=== PATIENT | female | born 1935 | race African-American/Black ===

== ENCOUNTER 2017-02-06 12:10 | Inpatient (IN) | payer MEDICARE, OTHER ==
[~2017-02-06] VITALS: Ht 162.6 cm; Wt 117.5 kg
[2017-02-06] VITALS (9 sets, daily range): BP systolic 123–156; BP diastolic 63–84; PULSE 68–82; RESP 18–20; TEMP 98.5–98.6; O2SAT 96–99
[2017-02-06] MEDS ORDERED: SODIUM CHLOR 0.9% 1000 ML INJ 1,000 ML IV SCH (12:49)
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
[2017-02-06] MEDS ORDERED: PIPERACIL-TAZO 3.375 GM PREMIX 50 ML IV ONE (13:30)
[2017-02-06 13:40] LABS: AUTOMATED NEUTROPHIL # 13.9 TH/MM3 (1.8-7.7); BASOPHIL # 0.1 TH/MM3 (0-0.2); BASOPHIL % 0.4 % (0.0-2.0); EOSINOPHIL % 0.1 % (0.0-4.0); HEMATOCRIT 26.4 % (35.0-46.0); LYMPH % 7.9 % (9.0-44.0); LYMPHOCYTE # 1.3 TH/MM3 (1.0-4.8); MEAN CELL VOLUME 97.1 FL (80.0-100.0); MEAN CORPUSCULAR HEMOGLOBIN 30.9 PG (27.0-34.0); MEAN CORPUSCULAR HGB CONC 31.8 % (32.0-36.0); MONO % 5.1 % (0.0-8.0); NEUT % 86.5 % (16.0-70.0); PLATELET COUNT 313 TH/MM3 (150-450); RED BLOOD COUNT 2.71 MIL/MM3 (4.00-5.30); RED CELL DISTRIBUTION WIDTH 15.2 % (11.6-17.2); WHITE BLOOD COUNT 16.1 TH/MM3 (4.0-11.0)
[2017-02-06 13:41] LABS: HEMO FLAGS AUTO DIFF
[2017-02-06 13:57] LABS: APTT (PATIENT) 35.9 SEC (24.3-30.1); INTERNATIONAL NORMALIZED RATIO 1.2 RATIO; PROTHROMBIN TIME - PATIENT 13.4 SEC (9.8-11.6)
[2017-02-06] MEDS ORDERED: POTA10TA2 PO (14:04)
[2017-02-06] MEDS ORDERED: SIMV20TA PO (14:04)
[2017-02-06] MEDS ORDERED: ENAL20TA PO (14:04)
[2017-02-06] MEDS ORDERED: FURO20TA PO (14:04)
[2017-02-06 14:09] LABS: BANDS 13 % (0-6); MYELOCYTES 1 % (0-0); NEUTROPHIL # MANUAL DIFF 14.7 TH/MM3 (1.8-7.7); PLATELET ESTIMATE SMEAR NORMAL (NORMAL); PLATELET MORPHOLOGY NORMAL (NORMAL); POLYS (SEG NEUTROPHILS) 77 % (16-70); SCAN/DIFF FINAL DIFF MANUAL; WBC DIFF SAMPLE 100
[2017-02-06 14:19] LABS: BICARBONATE 19.3 MEQ/L (21.0-32.0); MAGNESIUM 1.7 MG/DL (1.5-2.5); TOTAL BILIRUBIN ADULT 0.6 MG/DL (0.2-1.0)
[2017-02-06 14:23] LABS: POTASSIUM 2.8 MEQ/L (3.5-5.1)
[2017-02-06] MEDS ORDERED: ASPIRIN 325 MG TAB PO ONE (14:30)
[2017-02-06] MEDS ORDERED: VANCOMYCIN INJ 1,000 MG in SODIUM CHLOR 0.9% 250 ML INJ 250 ML IV ONE (14:30)
[2017-02-06] MEDS ORDERED: POTASSIUM CHLORIDE 20 MEQ CONTROLLED RELEASE TAB PO ONE (14:30)
--- NOTE | 2017-02-06 14:41 | RADRPT ---
EXAM DATE/TIME: 02/06/2017 14:17 [facility] COMPARISON: No previous studies available for comparison. INDICATIONS : Fever. MEDICAL HISTORY : None. SURGICAL HISTORY : None. ENCOUNTER: Initial ACUITY: 1 day PAIN SCORE: 0/10 LOCATION: Bilateral chest FINDINGS: The heart is at the upper limits of normal in size. The mediastinal contours are within normal limits . The lungs are clear. The bony structures demonstrate advanced degenerative changes in the shoulders bilaterally. CONCLUSION: 1. Degenerative changes in the shoulders bilaterally. 2. No acute cardiopulmonary findings. Narciso Claros MD on February 06, 2017 at 14:39 Board Certified Radiologist. This report was verified electronically.
[2017-02-06] MEDS ORDERED: CALCIUM GLUCONATE INJ 1 GM in DEXTROSE 5% IN WATER 100ML INJ 100 ML IV ONE ×2 (14:45)
--- NOTE | 2017-02-06 14:49 | RADRPT ---
EXAM DATE/TIME: 02/06/2017 14:19 [facility] COMPARISON: No previous studies available for comparison. INDICATIONS : Left foot pain and open sore. MEDICAL HISTORY : Unobatianable. SURGICAL HISTORY : Unobtainable. ENCOUNTER: Initial ACUITY: 1 day PAIN SCORE: Non-responsive. LOCATION: Left foot. FINDINGS: No significant osteoporosis. Likely previous calcaneal fracture with flattening of Boehler's angle. N o definite acute fracture, dislocation or bony destructive change. There is diffuse soft tissue swell ing and soft tissue air present adjacent to the heel and in the lateral hindfoot. Arthritic changes a re present the ankle and hindfoot. Vascular calcifications noted. CONCLUSION: Soft tissue swelling and soft tissue air most notably in the hindfoot adjacent to the heel. no defini te acute bony findings Jeramie Neely MD on February 06, 2017 at 14:45 Board Certified Radiologist. This report was verified electronically.
--- NOTE | 2017-02-06 14:54 | RADRPT ---
EXAM DATE/TIME: 02/06/2017 14:19 [facility] COMPARISON: CHEST SINGLE AP, February 06, 2017, 14:17. INDICATIONS : Left ankle pain and open sore. MEDICAL HISTORY : Unobtainable. SURGICAL HISTORY : Unobtainable. ENCOUNTER: Initial ACUITY: 1 day PAIN SCORE: Non-responsive. LOCATION: Left ankle. FINDINGS: The examination demonstrates advanced degenerative changes within the ankle mortise. There is severe osteopenia. There is depression of the talar dome suggesting an old talar dome fracture. The examination also demonstrates gas within the subcutaneous soft tissues of the heel and cortical i rregularity of the calcaneus. This study would be concerning for osteomyelitis and possible gas formi ng organism. There is advanced atherosclerotic calcification of the posterior tibial artery. CONCLUSION: 1. Soft tissue defect with gas diffusely throughout the subcutaneous soft tissues of the heel and issac ntar surface of the foot. This is concerning for gangrenous changes with a gas-forming organism. Ther e is cortical irregularity of the calcaneus suggesting osteomyelitis. 2. Severe degenerative changes within the ankle. 3. Diffuse soft tissue swelling. Narciso Claros MD on February 06, 2017 at 14:51 Board Certified Radiologist. This report was verified electronically.
--- NOTE | 2017-02-06 15:15 | RADRPT ---
EXAM DATE/TIME: 02/06/2017 14:45 [facility] COMPARISON: No previous studies available for comparison. INDICATIONS : Altered mental status. RADIATION DOSE: 47.92 CTDIvol (mGy) MEDICAL HISTORY : Cardiovascular disease. SURGICAL HISTORY : None. ENCOUNTER: Initial ACUITY: 1 day PAIN SCALE: Non-responsive LOCATION: Bilateral head TECHNIQUE: Multiple contiguous axial images were obtained of the head. Using automated exposure control and adj ustment of the mA and/or kV according to patient size, radiation dose was kept as low as reasonably a chievable to obtain optimal diagnostic quality images. DICOM format image data is available electro nically for review and comparison. FINDINGS: CEREBRUM: The ventricles are normal in size and configuration. There is decreased attenuation in the periventri cular white matter most consistent with microvascular ischemic demyelinative change. There is mild di ffuse cortical atrophy. No acute intracranial hemorrhage or mass lesion is identified. No abnormal ex tra-axial fluid collections are seen. POSTERIOR FOSSA: The cerebellum and brainstem are intact. The 4th ventricle is midline. The cerebellopontine angle i s unremarkable. EXTRACRANIAL: The visualized portion of the orbits is intact. SKULL: The calvaria is intact. No evidence of skull fracture. CONCLUSION: 1. Mild cortical atrophy and microvascular ischemic demyelinative change. 2. No acute intracranial abnormality is identified. Narciso Claros MD on February 06, 2017 at 15:11 Board Certified Radiologist. This report was verified electronically.
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
[2017-02-06 15:47] LABS: BACTERIA, URINE RARE /hpf; BLOOD, URINE SMALL (NEG); COMMENT (UR) CATH-CULTURE IND; CULTURE IF INDICATED CATH CULTURE IND; GLUCOSE,URINE NEG (NEG); GRANULAR CAST, URINE 2 /lpf; HYALINE CAST, URINE 7 /lpf (RARE); KETONE, URINE TRACE mg/dL (NEG); MUCUS URINE MANY /lpf (OCC); NITRITE,URINE NEG (NEG); PH, URINE 5.5 (5.0-8.5); SQUAMOUS EPITHELIAL CELL URINE 4 /hpf (0-5); WHITE BLOOD CELL CAST, URINE 2 /lpf
[2017-02-06 15:51] LABS: URINE COLOR ORANGE (YELLW/STRAW)
[2017-02-06] MEDS ORDERED: MORPHINE SULFATE 4 MG/ML INJ IV PUSH PRN ×2 (16:00)
[2017-02-06] MEDS ORDERED: GLUCAGON 1 MG/ML VIAL OTHER PRN (16:00)
[2017-02-06] MEDS ORDERED: MAGNESIUM HYDROXIDE SUSP 30 ML CUP PO PRN (16:00)
[2017-02-06] MEDS ORDERED: ONDANSETRON HCL 4 MG/2 ML VIAL IVP PRN (16:00)
[2017-02-06] MEDS ORDERED: DEXTROSE 50% IN WATER 50 ML VIAL(D50) IV PUSH PRN (16:00)
[2017-02-06] MEDS ORDERED: PROCHLORPERAZINE 25 MG SUPP RECTAL PRN (16:00)
[2017-02-06] MEDS ORDERED: NALOXONE HCL 0.4 MG/ML AMP IV PUSH PRN (16:00)
[2017-02-06] MEDS ORDERED: BISACODYL 10 MG SUPP RECTAL PRN (16:00)
[2017-02-06] MEDS ORDERED: ACETAMINOPHEN 325 MG TAB PO PRN ×2 (16:00)
[2017-02-06] MEDS ORDERED: oxyCODONE/ACETAMINOPHEN 10 MG/325 MG TAB PO PRN (16:00)
[2017-02-06] MEDS ORDERED: LACTULOSE SYRUP 20 GM/30 ML CUP PO PRN (16:00)
[2017-02-06] MEDS ORDERED: SENNOSIDES 8.6 MG TAB PO PRN (16:00)
[2017-02-06] MEDS ORDERED: Vancomycin Consult Pharmacy 1 EA OTHER SCH (16:00)
[2017-02-06] MEDS ORDERED: SODIUM CHLORIDE 0.9% FLUSH 10 ML FLUSH IV FLUSH PRN (16:00)
[2017-02-06] MEDS: POTASSIUM CHLORIDE INJ 10 MEQ in SODIUM CHLOR 0.9% 1000 ML INJ 1,000 ML IV SCH (16:55)
[2017-02-06] MEDS: SODIUM CHLOR 0.9% 1000 ML INJ 1,000 ML IV SCH (16:56)
[2017-02-06] MEDS: MAGNESIUM SULFATE 1 GM PREMIX 100 ML IV SCH ×3 (17:00→23:24)
[2017-02-06] MEDS ORDERED: VANCOMYCIN 500 MG/NS 100 ML IV ONE ×2 (17:30)
--- NOTE | 2017-02-06 17:47 | PD.CONS ---
History of Present Illness Service Podiatry Consult Requested By ED Reason for Consult L heel ulcer, L foot gangrene Primary Care Physician Unknown Diagnoses: History of Present Illness 81 y/o female with a history of Dementia, CHF, DM, and Hyperlipidemia was brought into the ED by family with complaints of a open left heel wound. Patient was brought in by her daughter for a left heel wound that is not healing and is smelling bad. Patient is only oriented to self and the granddaughter at the bedside is not her health care social worker. History and ROS is limited. Patient denies any pain. Past Family Social History Allergies: Coded Allergies: No Known Allergies (Unverified , 02/06/17) Past Medical History HTN Dementia CHF Past Surgical History No surgical history noted Active Ordered Medications Current Medications Medications (Trade) Dose Ordered Sig/Sean Route Start Time Stop Time Status Last Admin Potassium Chloride 10 meq/ Sodium Chloride 1,005 ml @ 42 mls/hr [id number] IV 02/06/17 14:30 02/06/17 16:55 (D50w (Vial) Inj) 50 ml UNSCH PRN IV PUSH 02/06/17 16:00 (Glucagon Inj) 1 mg UNSCH PRN OTHER 02/06/17 16:00 (NovoLOG SUPPLEMENTAL SCALE) 1 ACHS SLIDING SCALE SQ 02/06/17 17:00 Pharmacy Profile Note 0 ml @ 0 mls/hr UNSCH OTHER 02/06/17 16:00 Piperacillin Sod/ Tazobactam Sod 100 ml @ 200 mls/hr Q6H IV 02/06/17 21:00 Sodium Chloride 1,000 ml @ 100 mls/hr Q10H IV 02/06/17 16:30 02/06/17 16:56 (NS Flush) 2 ml UNSCH PRN IV FLUSH 02/06/17 16:00 (NS Flush) 2 ml BID IV FLUSH 02/06/17 21:00 (Tylenol) 650 mg Q4H PRN PO 02/06/17 16:00 (Zofran Inj) 4 mg Q6H PRN IVP 02/06/17 16:00 (Compazine Supp) 25 mg Q12H PRN RECTAL 02/06/17 16:00 (Heparin Inj) 5,000 units Q12H SQ 02/06/17 17:00 (Tylenol) 650 mg Q6H PRN PO 02/06/17 16:00 (Percocet 5-325 Mg) 1 tab Q6H PRN PO 02/06/17 16:00 (Percocet 10-325 Mg) 1 tab Q6H PRN PO 02/06/17 16:00 (Morphine Inj) 2 mg Q3H PRN IV PUSH 02/06/17 16:00 (Morphine Inj) 4 mg Q3H PRN IV PUSH 02/06/17 16:00 (Narcan Inj) 0.4 mg UNSCH PRN IV PUSH 02/06/17 16:00 (Capri-Colace) 1 tab BID PO 02/06/17 21:00 (Milk Of Magnesia Liq) 30 ml Q12H PRN PO 02/06/17 16:00 (Senokot) 17.2 mg Q12H PRN PO 02/06/17 16:00 (Dulcolax Supp) 10 mg DAILY PRN RECTAL 02/06/17 16:00 (Lactulose Liq) 30 ml DAILY PRN PO 02/06/17 16:00 (K-Lyte Cl Eff) 25 meq Q12HR PO 02/06/17 21:00 Magnesium Sulfate/ Dextrose 100 ml @ 100 mls/hr Q1H IV 02/06/17 17:00 02/06/17 18:59 (Vasotec) 20 mg DAILY PO 02/07/17 09:00 (Lasix) 20 mg DAILY PO 02/07/17 09:00 (KCl) 10 meq DAILY PO 02/07/17 09:00 (Pravachol) 40 mg DAILY PO 02/07/17 09:00 Vancomycin HCl 500 mg/Sodium Chloride 100 ml @ 200 mls/hr ONCE ONCE IV 02/06/17 17:30 02/06/17 17:59 Vancomycin HCl 1500 mg/Sodium Chloride 515 ml @ 257.5 mls/ hr Q24H IV 02/07/17 16:00 Miscellaneous Information SPECIFIC LAB TO BE DELROY... ONCE ONCE .XX 02/09/17 15:45 02/09/17 15:46 Family History Patient does not know family history Social History Patient does not use tobacco, alcohol, or illicit drugs. Physical Exam Vital Signs Vital Signs Date Time Temp Pulse Resp B/P (MAP) Pulse Ox O2 Delivery O2 Flow Rate FiO2 02/06/17 16:54 71 18 156/63 (94) 99 Room Air 02/06/17 13:16 (97) 97 Room Air 02/06/17 12:29 98.5 82 20 123/84 (97) 96 Room Air 02/06/17 12:29 82 20 02/06/17 12:24 98.5 82 20 123/84 (97) Physical Exam L heel with necrotic ulcer and foul odor with serous drainage laterally. L plantar ball of foot hard and dark, dry gangrenous changes. L 2nd toe becoming hard and cold with coolness to digits 1,3,4,5 L foot. Nonpalpable pulses. Thin atrophic skin LLE. Laboratory Laboratory Tests Test 02/06/17 13:25 02/06/17 13:30 02/06/17 15:15 White Blood Count 16.1 Red Blood Count 2.71 Hemoglobin 8.4 Hematocrit 26.4 Mean Corpuscular Volume 97.1 Mean Corpuscular Hemoglobin 30.9 Mean Corpuscular Hemoglobin Concent 31.8 Red Cell Distribution Width 15.2 Platelet Count 313 Mean Platelet Volume 8.9 Neutrophils (%) (Auto) 86.5 Lymphocytes (%) (Auto) 7.9 Monocytes (%) (Auto) 5.1 Eosinophils (%) (Auto) 0.1 Basophils (%) (Auto) 0.4 Neutrophils # (Auto) 13.9 Lymphocytes # (Auto) 1.3 Monocytes # (Auto) 0.8 Eosinophils # (Auto) 0.0 Basophils # (Auto) 0.1 CBC Comment AUTO DIFF Differential Total Cells Counted 100 Neutrophils % (Manual) 77 Band Neutrophils % 13 Lymphocytes % 4 Monocytes % 5 Neutrophils # (Manual) 14.7 Myelocytes 1 Differential Comment FINAL DIFF MANUAL Platelet Estimate NORMAL Platelet Morphology Comment NORMAL Prothrombin Time 13.4 Prothromb Time International Ratio 1.2 Activated Partial Thromboplast Time 35.9 Blood Urea Nitrogen 17 Creatinine 0.74 Random Glucose 145 Total Protein 5.0 Albumin 1.3 Calcium Level 6.0 Magnesium Level 1.7 Alkaline Phosphatase 60 Aspartate Amino Transf (AST/SGOT) 22 Alanine Aminotransferase (ALT/SGPT) 9 Total Bilirubin 0.6 Sodium Level 148 Potassium Level 2.8 Chloride Level 120 Carbon Dioxide Level 19.3 Anion Gap 9 Estimat Glomerular Filtration Rate 92 Protein Corrected Calcium 7.0 Total Creatine Kinase 87 Troponin I 4.87 C-Reactive Protein 18.40 B-Type Natriuretic Peptide 603 Thyroid Stimulating Hormone 3rd Gen 0.889 Lactic Acid Level 1.7 Urine Color ORANGE Urine Turbidity CLOUDY Urine pH 5.5 Urine Specific [place] 1.029 Urine Protein 30 Urine Glucose (UA) NEG Urine Ketones TRACE Urine Occult Blood SMALL Urine Nitrite NEG Urine Bilirubin NEG Urine Urobilinogen 8.0 Urine Leukocyte Esterase NEG Urine RBC 25 Urine WBC 28 Urine WBC Clumps FEW Urine Squamous Epithelial Cells 4 Urine Bacteria RARE Urine Hyaline Casts 7 Urine Granular Casts 2 Urine White Blood Cell Casts 2 Urine Mucus MANY Microscopic Urinalysis Comment CATH-CULTURE IND Date/Time Source Procedure Growth Status 02/06/17 13:25 Blood Peripheral Aerobic Blood Culture Pending Received 02/06/17 13:25 Blood Peripheral Anaerobic Blood Culture Pending Received 02/06/17 15:15 Urine Catheterized Urine Urine Culture Pending Received 02/06/17 13:15 Wound Foot Gram Stain - Final Resulted 02/06/17 13:15 Wound Foot Wound Culture Pending Resulted Result Diagram: 02/06/17 1325 02/06/17 1325 Imaging Last [address] 02/06/17 1249 Signed Impressions: Service Date/Time: Monday, February 06, 2017 14:45 - CONCLUSION: 1. Mild cortical atrophy and microvascular ischemic demyelinative change. 2. No acute intracranial abnormality is identified. Narciso Claros MD Chest X-Ray 02/06/17 1249 Signed Impressions: Service Date/Time: Monday, February 06, 2017 14:17 - CONCLUSION: 1. Degenerative changes in the shoulders bilaterally. 2. No acute cardiopulmonary findings. Narciso Claros MD Foot X-Ray 02/06/17 0000 Signed Impressions: Service Date/Time: Monday, February 06, 2017 14:19 - CONCLUSION: Soft tissue swelling and soft tissue air most notably in the hindfoot adjacent to the heel. no definite acute bony findings Jeramie Neely MD Ankle X-Ray 02/06/17 0000 Signed Impressions: Service Date/Time: Monday, February 06, 2017 14:19 - CONCLUSION: 1. Soft tissue defect with gas diffusely throughout the subcutaneous soft tissues of the heel and plantar surface of the foot. This is concerning for gangrenous changes with a gas-forming organism. There is cortical irregularity of the calcaneus suggesting osteomyelitis. 2. Severe degenerative changes within the ankle. 3. Diffuse soft tissue swelling. Narciso Claros MD MRI L foot pending Assessment and Plan Assessment and Plan L heel ulcer, gangrene Continue with MRI L foot Ordered betadine wet to dry dressing daily Vascular consultation put in to Dr Sargent. Discussed patient with him via telephone. Continue offloading L heel. Bernardo Julian DPM Feb 06, 2017 17:47
[2017-02-06] MEDS ORDERED: GADODIAMIDE PF 287 MG/ML 20 ML VIAL (for RAD MRI) IVCONTRAST ONE (18:42)
--- NOTE | 2017-02-06 18:57 | RADRPT ---
EXAM DATE/TIME: 02/06/2017 18:02 [facility] COMPARISON: FOOT LEFT COMPLETE ([id number]), February 06, 2017, 14:19. INDICATIONS : Osteomyelitis. CONTRAST: 20 cc Omniscan (gadodiamide) IV MEDICAL HISTORY : Diabetes mellitus type 2. Hypertension. Dementia. SURGICAL HISTORY : None. ENCOUNTER: Initial ACUITY: 1 day PAIN SCORE: 0/10 LOCATION: Left Foot TECHNIQUE: Multiplanar, multisequence MRI examination was performed without contrast and after the intravenous a dministration of gadolinium. FINDINGS: Diffuse soft tissue cellulitic changes. Air in the soft tissues of the heel region. Significant abnor mal bony signal and morphologic disruption of the posterior calcaneus consistent with osteomyelitis. Bony elements appear otherwise grossly intact. No evidence of drainable soft tissue abscess. CONCLUSION: Osteomyelitis involving the posterior calcaneus Jeramie Neely MD on February 06, 2017 at 18:50 Board Certified Radiologist. This report was verified electronically.
--- NOTE | 2017-02-06 19:05 | RADRPT ---
EXAM DATE/TIME: 02/06/2017 18:02 [facility] COMPARISON: No previous studies available for comparison. INDICATIONS : Osteomyelitis. CONTRAST: 20 cc Omniscan (gadodiamide) IV MEDICAL HISTORY : Hypertension. Diabetes mellitus type 2. Dementia. SURGICAL HISTORY : None. ENCOUNTER: Initial ACUITY: 1 day PAIN SCORE: 0/10 LOCATION: Left foot TECHNIQUE: Multiplanar, multisequence MRI examination was performed without contrast and after the intravenous a dministration of gadolinium. FINDINGS: Diffuse subcutaneous edema and imaging features consistent with cellulitis. There is a large ulcer at the posterior calcaneal region with air in the subcutaneous tissues at this level and abnormal bone marrow signal intensity and irregularity of the posterior calcaneus with high T2 signal, and this is characteristic of osteomyelitis. There are no drainable fluid collections identified. Ulceration of t he lower leg is seen with exposure of the Achilles tendon. CONCLUSION: Significant soft tissue deformity with cellulitis and osteomyelitis of the posterior calcaneus. No dr alexander fluid collections are seen to suggest abscess at this time. Yoan Subramanian MD on February 06, 2017 at 19:02 Board Certified Radiologist. This report was verified electronically.
[2017-02-06] MEDS: INSULIN ASPART SUPPLEMENTAL SCALE SQ SCH ×2 (21:00→21:57)
[2017-02-06] MEDS: POTASSIUM CHLORIDE 25 MEQ EFFERVESCENT TAB PO SCH (21:56)
[2017-02-06] MEDS: SODIUM CHLORIDE 0.9% FLUSH 10 ML FLUSH IV FLUSH SCH (21:57)
[2017-02-06] MEDS: HEPARIN SODIUM - SQ 10,000 UNITS/ML VIAL SQ SCH (21:57)
[2017-02-06] MEDS: PIPERACIL-TAZO 4.5 GM PREMIX 100 ML IV SCH (21:57)
[2017-02-06] MEDS: DOCUSATE SODIUM 50 MG/SENNA 8.6 MG TAB PO SCH (21:58)
[2017-02-06] MEDS ORDERED: VANCOMYCIN INJ 500 MG in SODIUM CHLOR 0.9% 250 ML INJ 250 ML IV ONE (23:00)
[2017-02-07] VITALS (16 sets, daily range): BP systolic 107–149; BP diastolic 50–75; PULSE 64–94; RESP 14–18; TEMP 98.4–99.2; O2SAT 94–99
[2017-02-07] MEDS: MAGNESIUM SULFATE 1 GM PREMIX 100 ML IV SCH (00:39)
[2017-02-07] MEDS: PIPERACIL-TAZO 4.5 GM PREMIX 100 ML IV SCH ×4 (03:38→20:42)
[2017-02-07] MEDS: HEPARIN SODIUM - SQ 10,000 UNITS/ML VIAL SQ SCH ×2 (05:06→17:24)
[2017-02-07 05:38] LABS: AUTOMATED NEUTROPHIL # 18.7 TH/MM3 (1.8-7.7); BASOPHIL # 0.3 TH/MM3 (0-0.2); BASOPHIL % 1.5 % (0.0-2.0); EOSINOPHIL # 0.1 TH/MM3 (0-0.4); EOSINOPHIL % 0.4 % (0.0-4.0); HEMATOCRIT 30.1 % (35.0-46.0); LYMPH % 7.6 % (9.0-44.0); LYMPHOCYTE # 1.7 TH/MM3 (1.0-4.8); MEAN CELL VOLUME 95.4 FL (80.0-100.0); MEAN CORPUSCULAR HEMOGLOBIN 30.2 PG (27.0-34.0); MEAN CORPUSCULAR HGB CONC 31.6 % (32.0-36.0); MONO % 5.2 % (0.0-8.0); NEUT % 85.3 % (16.0-70.0); PLATELET COUNT 378 TH/MM3 (150-450); RED BLOOD COUNT 3.15 MIL/MM3 (4.00-5.30); RED CELL DISTRIBUTION WIDTH 14.7 % (11.6-17.2); WHITE BLOOD COUNT 21.9 TH/MM3 (4.0-11.0)
[2017-02-07 05:40] LABS: HEMO FLAGS AUTO DIFF
[2017-02-07 06:03] LABS: ALT (GPT) 12 U/L (10-53); ANION GAP 10 MEQ/L (5-15); AST (GOT) 27 U/L (15-37); BICARBONATE 23.3 MEQ/L (21.0-32.0); BLOOD UREA NITROGEN 22 MG/DL (7-18); CHLORIDE 111 MEQ/L (98-107); GLOMERULAR FILTRATION RATE 66 ML/MIN (>89); MAGNESIUM 2.9 MG/DL (1.5-2.5); POTASSIUM 3.9 MEQ/L (3.5-5.1); SODIUM (NA) 144 MEQ/L (136-145)
[2017-02-07 06:18] LABS: ALKALINE PHOSPHATASE 77 U/L (45-117); CREATINE KINASE 135 U/L (26-192); FREE T4 1.63 NG/DL (0.76-1.46); HDL CHOLESTEROL 13.1 MG/DL (40.0-60.0); LDL CHOLESTEROL 42 MG/DL (0-99); TOTAL BILIRUBIN ADULT 0.7 MG/DL (0.2-1.0)
[2017-02-07 06:47] LABS: PLATELET ESTIMATE SMEAR NORMAL (NORMAL); PLATELET MORPHOLOGY NORMAL (NORMAL); SCAN/DIFF AUTO DIFF CONFIRMED
[2017-02-07] MEDS: INSULIN ASPART SUPPLEMENTAL SCALE SQ SCH ×4 (08:00→20:43)
--- NOTE | 2017-02-07 08:37 | PD.VS.CON ---
History of Present Illness Chief Complaint: L heel wound Consult Requested by: Dr. Julian History of Present Illness 81 yo female, demented, with a history of at least 4 weeks of L heel wound. Brought to ED for concerns of drainage and odor. Pt lives with daughter and according to daughter has been nonambulatory x 5 months. Past/Family/Social History Past Medical History DM HTN CHF CAD PAD arthritis Past Surgical History unsure Social History lives with daughter DCF involved apparently Family History NC Home Medications Reported Medications Simvastatin (Simvastatin) 20 Mg Tab, 20 MG PO DAILY for Cholesterol Management, #30 TAB 0 Refills 02/06/17 Enalapril (Enalapril) 20 Mg Tab, 20 MG PO DAILY, #30 TAB 0 Refills 02/06/17 Furosemide (Furosemide) 20 Mg Tab, 20 MG PO DAILY, #30 TAB 0 Refills 02/06/17 Potassium Chloride ER (Potassium Chloride ER) 10 Meq Tab, 10 MEQ PO DAILY for Electrolyte Replacement, #30 TAB 0 Refills 02/06/17 Coded Allergies: No Known Allergies (Unverified , 02/06/17) Review of Systems ROS Limitations: Altered Mental Status Physical Exam Vitals/I&O Date Time Temp Pulse Resp B/P (MAP) Pulse Ox O2 Delivery O2 Flow Rate FiO2 02/07/17 06:00 64 02/07/17 05:00 74 02/07/17 04:00 Room Air 02/07/17 04:00 72 02/07/17 04:00 98.7 68 18 133/69 (90) 95 02/07/17 03:00 68 02/07/17 02:00 80 02/07/17 01:00 78 02/07/17 00:00 99.2 94 18 130/70 (90) 94 02/07/17 00:00 Room Air 02/07/17 00:00 83 02/06/17 23:00 82 02/06/17 22:00 68 02/06/17 21:00 68 02/06/17 20:00 68 02/06/17 19:20 98.6 78 18 124/74 (91) 99 02/06/17 19:20 Room Air 02/06/17 18:16 02/06/17 16:54 71 18 156/63 (94) 99 Room Air 02/06/17 13:16 (97) 97 Room Air 02/06/17 12:29 98.5 82 20 123/84 (97) 96 Room Air 02/06/17 12:29 82 20 02/06/17 12:24 98.5 82 20 123/84 (97) 02/07/17 02/07/17 02/07/17 06:59 14:59 22:59 Intake Total 2138 ml Output Total 2 ml Balance 2136 ml Neuro: debilitated women, no distress, talks but not oriented HEENT: anicteric sclera Neck: no JVD Lungs: clear Abdomen: NT Vascular: no palpable pulses Extremities: L heel eschar and Achilles breakdown Plantar ulcer Laboratory Tests Test 02/06/17 13:25 02/06/17 13:30 02/06/17 15:15 02/07/17 05:21 White Blood Count 16.1 21.9 Red Blood Count 2.71 3.15 Hemoglobin 8.4 9.5 Hematocrit 26.4 30.1 Mean Corpuscular Volume 97.1 95.4 Mean Corpuscular Hemoglobin 30.9 30.2 Mean Corpuscular Hemoglobin Concent 31.8 31.6 Red Cell Distribution Width 15.2 14.7 Platelet Count 313 378 Mean Platelet Volume 8.9 9.3 Neutrophils (%) (Auto) 86.5 85.3 Lymphocytes (%) (Auto) 7.9 7.6 Monocytes (%) (Auto) 5.1 5.2 Eosinophils (%) (Auto) 0.1 0.4 Basophils (%) (Auto) 0.4 1.5 Neutrophils # (Auto) 13.9 18.7 Lymphocytes # (Auto) 1.3 1.7 Monocytes # (Auto) 0.8 1.1 Eosinophils # (Auto) 0.0 0.1 Basophils # (Auto) 0.1 0.3 CBC Comment AUTO DIFF AUTO DIFF Differential Total Cells Counted 100 Neutrophils % (Manual) 77 Band Neutrophils % 13 Lymphocytes % 4 Monocytes % 5 Neutrophils # (Manual) 14.7 Myelocytes 1 Differential Comment FINAL DIFF MANUAL AUTO DIFF CONFIRMED Platelet Estimate NORMAL NORMAL Platelet Morphology Comment NORMAL NORMAL Prothrombin Time 13.4 Prothromb Time International Ratio 1.2 Activated Partial Thromboplast Time 35.9 Blood Urea Nitrogen 17 22 Creatinine 0.74 0.98 Random Glucose 145 174 Total Protein 5.0 6.6 Albumin 1.3 1.8 Calcium Level 6.0 8.0 Magnesium Level 1.7 2.9 Alkaline Phosphatase 60 77 Aspartate Amino Transf (AST/SGOT) 22 27 Alanine Aminotransferase (ALT/SGPT) 9 12 Total Bilirubin 0.6 0.7 Sodium Level 148 144 Potassium Level 2.8 3.9 Chloride Level 120 111 Carbon Dioxide Level 19.3 23.3 Anion Gap 9 10 Estimat Glomerular Filtration Rate 92 66 Protein Corrected Calcium 7.0 Total Creatine Kinase 87 135 Troponin I 4.87 5.30 C-Reactive Protein 18.40 B-Type Natriuretic Peptide 603 Thyroid Stimulating Hormone 3rd Gen 0.889 1.940 Lactic Acid Level 1.7 Urine Color ORANGE Urine Turbidity CLOUDY Urine pH 5.5 Urine Specific [place] 1.029 Urine Protein 30 Urine Glucose (UA) NEG Urine Ketones TRACE Urine Occult Blood SMALL Urine Nitrite NEG Urine Bilirubin NEG Urine Urobilinogen 8.0 Urine Leukocyte Esterase NEG Urine RBC 25 Urine WBC 28 Urine WBC Clumps FEW Urine Squamous Epithelial Cells 4 Urine Bacteria RARE Urine Hyaline Casts 7 Urine Granular Casts 2 Urine White Blood Cell Casts 2 Urine Mucus MANY Microscopic Urinalysis Comment CATH-CULTURE IND Red Cell Morphology Comment NORMAL Phosphorus Level 2.0 Triglycerides Level 126 Cholesterol Level 80 LDL Cholesterol 42 HDL Cholesterol 13.1 Cholesterol/HDL Ratio 6.10 Free Thyroxine 1.63 Date/Time Source Procedure Growth Status 02/06/17 13:25 Blood Peripheral Aerobic Blood Culture Pending Received 02/06/17 13:25 Blood Peripheral Anaerobic Blood Culture Pending Received 02/06/17 15:15 Urine Catheterized Urine Urine Culture Pending Received 02/06/17 13:15 Wound Foot Gram Stain - Final Resulted 02/06/17 13:15 Wound Foot Wound Culture Pending Resulted Last [address] 02/06/17 1249 Signed Impressions: Service Date/Time: Monday, February 06, 2017 14:45 - CONCLUSION: 1. Mild cortical atrophy and microvascular ischemic demyelinative change. 2. No acute intracranial abnormality is identified. Narciso Claros MD Chest X-Ray 02/06/17 1249 Signed Impressions: Service Date/Time: Monday, February 06, 2017 14:17 - CONCLUSION: 1. Degenerative changes in the shoulders bilaterally. 2. No acute cardiopulmonary findings. Narciso Claros MD Foot X-Ray 02/06/17 0000 Signed Impressions: Service Date/Time: Monday, February 06, 2017 14:19 - CONCLUSION: Soft tissue swelling and soft tissue air most notably in the hindfoot adjacent to the heel. no definite acute bony findings Jeramie Neely MD Foot MRI 02/06/17 Signed Impressions: Service Date/Time: Monday, February 06, 2017 18:02 - CONCLUSION: Osteomyelitis involving the posterior calcaneus Jeramie Neely MD Ankle X-Ray 02/06/17 Signed Impressions: Service Date/Time: Monday, February 06, 2017 14:19 - CONCLUSION: 1. Soft tissue defect with gas diffusely throughout the subcutaneous soft tissues of the heel and plantar surface of the foot. This is concerning for gangrenous changes with a gas-forming organism. There is cortical irregularity of the calcaneus suggesting osteomyelitis. 2. Severe degenerative changes within the ankle. 3. Diffuse soft tissue swelling. Narciso Claros MD Ankle MRI 02/06/17 Signed Impressions: Service Date/Time: Monday, February 06, 2017 18:02 - CONCLUSION: Significant soft tissue deformity with cellulitis and osteomyelitis of the posterior calcaneus. No drainable fluid collections are seen to suggest abscess at this time. Yoan Subramanian MD Assessment and Plan Plan Heel ulcer amounts to decubitus and clear osteo but no abscess on MRI. I don't think the foot is salvageable and she needs an AKA given nonambulatory status. I talked with one of her daughters (8 children) but will ask social work to get involved as well given issues laid out in H&P re: DCF. Likely staged AKA in next day or two. Jonathan Sargent MD [facility] [employer] property specialist [facility] - Heart and Vascular Surgery at [facility] [phone] Jonathan Sargent MD Feb 07, 2017 08:37
[2017-02-07] MEDS: ENALAPRIL MALEATE 10 MG TAB PO SCH (09:00)
--- NOTE | 2017-02-07 09:04 | ECHRPT ---
Indication: htn h dis CONCLUSIONS The left ventricular systolic function is [id number] reduced with an estimated ejection fra ction in the range of 35-40%. Normal left ventricular size. Hypokinesis of anteroseptal, apical, mid anterior, and anterolateral segments. Moderate concentric left ventricular hypertrophy. Mild mitral valve regurgitation. No aortic valve stenosis. No aortic valve regurgitation. There is mild tricuspid valve regurgitation. The estimated pulmonary arterial pressure is 50.7 mmHg. BP: / HR: Rhythm: MEASUREMENTS (Male / Female) Normal Values Technical Quality:Technically difficult study 2D ECHO LV Diastolic Diameter PLAX 4.8 cm 4.2 - 5.9 / 3.9 - 5.3 cm LV Systolic Diameter PLAX 4.1 cm IVS Diastolic Thickness 1.5 cm 0.6 - 1.0 / 0.6 - 0.9 cm LVPW Diastolic Thickness 0.9 cm 0.6 - 1.0 / 0.6 - 0.9 cm LV Relative Wall Thickness 0.5 RV Internal Dim ED PLAX 2.4 cm M-MODE Aortic Root Diameter MM 2.3 cm LA Systolic Diameter MM 3.1 cm LA Ao Ratio MM 1.3 AV Cusp Separation MM 1.8 cm DOPPLER Mitral E Point Velocity 50.3 cm/s Mitral A Point Velocity 101.0 cm/s Mitral E to A Ratio 0.5 LV E' Lateral Velocity 5.4 cm/s Mitral E to LV E' Lateral Ratio 9.4 LV E' Septal Velocity 5.4 cm/s Mitral E to LV E' Septal Ratio 9.4 TR Peak Velocity 319.0 cm/s TR Peak Gradient 40.7 mmHg Right Atrial Pressure 10.0 mmHg Pulmonary Artery Systolic Pressu 50.7 mmHg Right Ventricular Systolic Press 50.7 mmHg FINDINGS LEFT VENTRICLE The left ventricular systolic function is [id number] reduced with an estimated ejection fra ction in the range of 35-40%. Normal left ventricular size. Hypokinesis of anteroseptal, apical, mid anterior, and anterolateral segments. Moderate concentric left ventricular hypertrophy. RIGHT VENTRICLE Normal right ventricular size and systolic function. LEFT ATRIUM The left atrial size is normal. RIGHT ATRIUM The right atrial size is normal. ATRIAL SEPTUM Normal atrial septal thickness without atrial level shunting by limited color doppler interrogation. AORTA The aortic root and proximal ascending aorta are normal in size on limited imaging. MITRAL VALVE Structurally normal mitral valve. Mild mitral valve regurgitation. AORTIC VALVE Trileaflet aortic valve. No aortic valve stenosis. No aortic valve regurgitation. TRICUSPID VALVE Structurally normal tricuspid valve. There is mild tricuspid valve regurgitation. The estimated pulmonary arterial pressure is 50.7 mmHg. PULMONARY VALVE No pulmonary valve regurgitation or stenosis. VESSELS The inferior vena cava is normal in size. PERICARDIUM No pericardial effusion. Jj Guillermo MD, FACC (Electronically Signed) Final Date:07 February 2017 09:03
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
[2017-02-07 10:10] LABS: HEMOGLOBIN A1a 0.8 %; HEMOGLOBIN A1b 0.8 %; HEMOGLOBIN Ao 81.6 %; HEMOGLOBIN F 1.3 %; HEMOGLOBIN LA1C 2.6 %; HEMOGLOBIN P3 6.2 %
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
[2017-02-07] MEDS: PRAVASTATIN SOD 40 MG TAB PO SCH (10:39)
[2017-02-07] MEDS: POTASSIUM CHLORIDE 10 MEQ CONTROLLED RELEASE TAB PO SCH (10:39)
[2017-02-07] MEDS: FUROSEMIDE 20 MG TAB PO SCH (10:40)
[2017-02-07] MEDS: SODIUM CHLORIDE 0.9% FLUSH 10 ML FLUSH IV FLUSH SCH ×2 (10:40→20:42)
[2017-02-07] MEDS: DOCUSATE SODIUM 50 MG/SENNA 8.6 MG TAB PO SCH ×2 (10:40→20:42)
[2017-02-07] MEDS: POTASSIUM CHLORIDE 25 MEQ EFFERVESCENT TAB PO SCH ×2 (10:40→20:42)
[2017-02-07] MEDS: SODIUM CHLOR 0.9% 1000 ML INJ 1,000 ML IV SCH ×3 (10:46→20:44)
--- NOTE | 2017-02-07 12:51 | EKG ---
Date Performed: 02/07/2017 Time Performed: 05:40:32 PTAGE: 81 years EKG: Atrial fibrillation Possible anteroseptal infarct - age undetermined Lateral ST-T changes m ay be due to myocardial ischemia Abnormal ECG Compared to prior tracing no significant change PREVIOUS TRACING : 02/06/2017 13.16 DOCTOR: Alan Treviño Interpretating Date/Time 02/07/2017 12:49:39
--- NOTE | 2017-02-07 15:20 | PD.WCN.NOT ---
Wound Consult Description: Received consult for pressure ulcer to heels, ankles and sacral area. Podiatry is following patient for heel and ankle wounds Communicated with: SANIA Mejia [facility] Recommendation: 1.Please cleanse bilateral buttock, gluteal cleft and sacral area with soap and water gently and pat dry. Apply thick layer of Calazime barrier cream to areas and leave open to air. 2.Obtain [place] airapy bed from environmental or if not available, please order K4 bed from [facility] 3.Continue to turn patient every 2 hours and PRN for comfort 4. Please defer to podiatry for wound care orders for heel and ankle wounds Additional Information: Patient seen on [facility]IC for pressure ulcer of heels, ankles and sacral area. Patient turned to R side with the maximum assistance of Jackie LUI CIC and field underwriter. Gently spread gluteal folds apart to reveal small wound to sacral area that measures 1 cm x ~0.5cm x~0.2cm wound bed is noted with ~80% pink tissue and ~20%yellow tissue.Wound presents with round shape and defined wound margins. Wound appears pressure and moisture related. Wound appears to be a full thickness stage 3. Just below sacral wound is a fissure to the medial gluteal cleft that measures ~3cm x~0.2cm x~0.1cm. Fissure presents with 100% pink tissue. Fissure wound appears to be moisture and mechanical force related. Cleansed wounds with normal saline and left open to air. SANIA Mejia to offload pressure from patient's buttock area with pillow for support and apply Calazime barrier cream when supplies obtained. Patient does need pressure relieving support surface as recommended above. Ava Boles [facility] Feb 07, 2017 15:20
[2017-02-07 15:22] LABS: CKMB 5.6 NG/ML (0.5-3.6)
--- NOTE | 2017-02-07 16:19 | EKG ---
Date Performed: 02/06/2017 Time Performed: 13:16:52 PTAGE: 81 years EKG: Sinus rhythm WITH SINUS ARRHYTHMIA Nonspecific T wave changes, consider electrolyte abnormality NO PREVIOUS TRACING DOCTOR: Alan Treviño Interpretating Date/Time 02/07/2017 16:18:32
[2017-02-07] MEDS: NYSTATIN 100,000 UNIT/GM CREAM 15 GM TOPICAL SCH ×2 (17:23→20:43)
[2017-02-07] MEDS: NYSTATIN 100,000 U/GM PWD 15 GM BTL TOPICAL SCH ×2 (17:23→20:43)
[2017-02-07] MEDS: VANCOMYCIN 1,500 MG/NS 500 ML IV SCH ×2 (17:24)
[2017-02-07] MEDS: POTASSIUM CHLORIDE INJ 10 MEQ in SODIUM CHLOR 0.9% 1000 ML INJ 1,000 ML IV SCH (17:49)
[2017-02-08] VITALS (25 sets, daily range): BP systolic 107–140; BP diastolic 32–66; PULSE 60–84; RESP 15–18; TEMP 97.3–98.8; O2SAT 97–100
[2017-02-08] MEDS: NYSTATIN 100,000 UNIT/GM CREAM 15 GM TOPICAL SCH ×3 (05:18→21:47)
[2017-02-08] MEDS: PIPERACIL-TAZO 4.5 GM PREMIX 100 ML IV SCH ×4 (05:18→21:45)
[2017-02-08] MEDS: NYSTATIN 100,000 U/GM PWD 15 GM BTL TOPICAL SCH ×3 (05:18→21:47)
[2017-02-08] MEDS: HEPARIN SODIUM - SQ 10,000 UNITS/ML VIAL SQ SCH ×2 (05:18→17:59)
--- NOTE | 2017-02-08 06:54 | PD.POD ---
Subjective Pain score: 0 Remarks relates minimal pain today, late entry- pt was also seen yesterday with daughter present. Past Med/Surg/Social History Social History Smoking Status: Never Smoker Objective Vital Signs Vital Signs Date Time Temp Pulse Resp B/P (MAP) Pulse Ox O2 Delivery O2 Flow Rate FiO2 02/08/17 06:26 69 02/08/17 05:38 76 02/08/17 04:59 98.8 79 111/56 (74) 100 02/08/17 04:00 76 02/08/17 03:00 77 02/08/17 02:00 76 02/08/17 01:00 74 02/08/17 00:00 74 02/07/17 23:28 72 02/07/17 23:00 98.8 73 107/65 (79) 95 02/07/17 22:27 98.4 73 149/50 (83) 99 02/07/17 21:00 77 02/07/17 20:00 77 02/07/17 19:00 77 02/07/17 19:00 Room Air 02/07/17 15:00 98.9 86 16 132/75 (94) 02/07/17 11:00 98.4 66 16 141/74 (96) 02/07/17 07:00 99.0 84 14 141/70 (93) Coded Allergies: No Known Allergies (Unverified , 02/06/17) Medications and IVs Administered Medications Medications (Trade) Dose Ordered Sig/Sean Route PRN Reason Start Time Stop Time Status Last Admin Dose Admin Potassium Chloride 10 meq/ Sodium Chloride 1,005 ml @ 42 mls/hr [id number] IV 02/06/17 14:30 02/07/17 17:49 Insulin Aspart (NovoLOG SUPPLEMENTAL SCALE) 1 ACHS SLIDING SCALE SQ 02/06/17 17:00 02/07/17 20:43 Piperacillin Sod/ Tazobactam Sod 100 ml @ 200 mls/hr Q6H IV 02/06/17 21:00 02/08/17 05:18 Sodium Chloride 1,000 ml @ 100 mls/hr Q10H IV 02/06/17 16:30 02/07/17 20:44 Sodium Chloride (NS Flush) 2 ml BID IV FLUSH 02/06/17 21:00 02/07/17 20:42 Acetaminophen (Tylenol) 650 mg Q4H PRN PO TEMP > 100.4 02/06/17 16:00 02/07/17 10:39 Heparin Sodium (Porcine) (Heparin Inj) 5,000 units Q12H SQ 02/06/17 17:00 02/08/17 05:18 Senna/Docusate Sodium (Capri-Colace) 1 tab BID PO 02/06/17 21:00 02/07/17 10:40 Potassium Bicarb/ Potassium Chloride (K-Lyte Cl Eff) 25 meq Q12HR PO 02/06/17 21:00 02/07/17 20:42 Enalapril Maleate (Vasotec) 20 mg DAILY PO 02/07/17 09:00 02/07/17 09:00 Furosemide (Lasix) 20 mg DAILY PO 02/07/17 09:00 02/07/17 10:40 Potassium Chloride (KCl) 10 meq DAILY PO 02/07/17 09:00 02/07/17 10:39 Pravastatin Sodium (Pravachol) 40 mg DAILY PO 02/07/17 09:00 02/07/17 10:39 Vancomycin HCl 1500 mg/Sodium Chloride 515 ml @ 257.5 mls/ hr Q24H IV 02/07/17 16:00 02/07/17 17:24 Nystatin (Mycostatin Powder) 1 applic Q8HR TOPICAL 02/07/17 14:00 02/08/17 05:18 Nystatin (Mycostatin Cream) 1 applic Q8HR TOPICAL 02/07/17 14:00 02/08/17 05:18 Other Results Microbiology Date/Time Source Procedure Growth Status 02/06/17 13:25 Blood Peripheral Aerobic Blood Culture - Preliminary NO GROWTH IN 1 DAY Resulted 02/06/17 13:25 Blood Peripheral Anaerobic Blood Culture - Preliminary NO GROWTH IN 1 DAY Resulted 02/06/17 15:15 Urine Catheterized Urine Urine Culture - Preliminary NO GROWTH IN 24 HOURS. Resulted 02/06/17 13:15 Wound Foot Gram Stain - Final Resulted 02/06/17 13:15 Wound Foot Wound Culture - Preliminary Resulted Last [address] 02/06/17 8650 Signed Impressions: Service Date/Time: Monday, February 06, 2017 14:45 - CONCLUSION: 1. Mild cortical atrophy and microvascular ischemic demyelinative change. 2. No acute intracranial abnormality is identified. Narciso Claros MD Chest X-Ray 02/06/17 1249 Signed Impressions: Service Date/Time: Monday, February 06, 2017 14:17 - CONCLUSION: 1. Degenerative changes in the shoulders bilaterally. 2. No acute cardiopulmonary findings. Narciso Claros MD Foot X-Ray 02/06/17 0000 Signed Impressions: Service Date/Time: Monday, February 06, 2017 14:19 - CONCLUSION: Soft tissue swelling and soft tissue air most notably in the hindfoot adjacent to the heel. no definite acute bony findings Jeramie Neely MD Foot MRI 02/06/17 Signed Impressions: Service Date/Time: Monday, February 06, 2017 18:02 - CONCLUSION: Osteomyelitis involving the posterior calcaneus Jeramie Neely MD Ankle X-Ray 02/06/17 Signed Impressions: Service Date/Time: Monday, February 06, 2017 14:19 - CONCLUSION: 1. Soft tissue defect with gas diffusely throughout the subcutaneous soft tissues of the heel and plantar surface of the foot. This is concerning for gangrenous changes with a gas-forming organism. There is cortical irregularity of the calcaneus suggesting osteomyelitis. 2. Severe degenerative changes within the ankle. 3. Diffuse soft tissue swelling. Narciso Claros MD Ankle MRI 02/06/17 Signed Impressions: Service Date/Time: Monday, February 06, 2017 18:02 - CONCLUSION: Significant soft tissue deformity with cellulitis and osteomyelitis of the posterior calcaneus. No drainable fluid collections are seen to suggest abscess at this time. Yoan Subramanian MD Physical Exam General appearance: comfortable Details Left foot- dark dry black area of 2nd digit, plantar forefoot and posterior, full thickness eschars noted with no odor, foot is warm. Right foot no lesions and skin appears dry scaling with no lesions, right foot is warm. Details Hard to palpate pulses BL LE Details Limited motion and muscle strength of BL foot and ankle Details Sensation below BL ankles appear to be absent. Assessment & Plan Diagnosis: (1) Decubitus ulcer of ankle, unstageable ICD Codes: L89.500 - Pressure ulcer of unspecified ankle, unstageable Status: Chronic A/P No surgical intervention planned, reviewed case with vascular agree with stage AK. Right foot needs no attention other than offloading to prevent ulcerations, pillow under calf. Please re-consult as need, Podiatry sign off. Problem Qualifiers (1) Decubitus ulcer of ankle, unstageable: Qualified Codes: L89.520 - Pressure ulcer of left ankle, unstageable Domingo Ortiz DPM Feb 08, 2017 06:54
[2017-02-08 07:02] LABS: AUTOMATED NEUTROPHIL # 15.5 TH/MM3 (1.8-7.7); BASOPHIL # 0.1 TH/MM3 (0-0.2); BASOPHIL % 0.4 % (0.0-2.0); EOSINOPHIL # 0.1 TH/MM3 (0-0.4); EOSINOPHIL % 0.7 % (0.0-4.0); HEMATOCRIT 27.4 % (35.0-46.0); HEMO FLAGS DIFF FINAL; LYMPH % 9.3 % (9.0-44.0); LYMPHOCYTE # 1.7 TH/MM3 (1.0-4.8); MEAN CELL VOLUME 96.8 FL (80.0-100.0); MEAN CORPUSCULAR HEMOGLOBIN 29.9 PG (27.0-34.0); MEAN CORPUSCULAR HGB CONC 30.9 % (32.0-36.0); MONO % 5.5 % (0.0-8.0); NEUT % 84.1 % (16.0-70.0); PLATELET COUNT 336 TH/MM3 (150-450); RED BLOOD COUNT 2.83 MIL/MM3 (4.00-5.30); RED CELL DISTRIBUTION WIDTH 15.6 % (11.6-17.2); WHITE BLOOD COUNT 18.4 TH/MM3 (4.0-11.0)
[2017-02-08 07:18] LABS: ALT (GPT) 11 U/L (10-53); ANION GAP 9 MEQ/L (5-15); AST (GOT) 37 U/L (15-37); BICARBONATE 22.2 MEQ/L (21.0-32.0); BLOOD UREA NITROGEN 20 MG/DL (7-18); CHLORIDE 117 MEQ/L (98-107); GLOMERULAR FILTRATION RATE 59 ML/MIN (>89); MAGNESIUM 2.6 MG/DL (1.5-2.5); SODIUM (NA) 148 MEQ/L (136-145)
[2017-02-08 07:20] LABS: ALKALINE PHOSPHATASE 93 U/L (45-117); TOTAL BILIRUBIN ADULT 0.4 MG/DL (0.2-1.0)
[2017-02-08] MEDS: INSULIN ASPART SUPPLEMENTAL SCALE SQ SCH ×4 (08:00→21:46)
[2017-02-08] MEDS: SODIUM CHLOR 0.9% 1000 ML INJ 1,000 ML IV SCH ×2 (08:34→21:45)
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
[2017-02-08] MEDS ORDERED: INFLUENZA VIRUS VACCINE (QUADRIVALENT) 0.5 ML SYR IM ONE (10:00)
[2017-02-08] MEDS ORDERED: PNEUMOCOCCAL POLYVALENT INJ 25 MCG/0.5 ML SYR IM ONE (10:00)
[2017-02-08] MEDS: FUROSEMIDE 20 MG TAB PO SCH (10:40)
[2017-02-08] MEDS: PRAVASTATIN SOD 40 MG TAB PO SCH (10:40)
[2017-02-08] MEDS: POTASSIUM CHLORIDE 10 MEQ CONTROLLED RELEASE TAB PO SCH (10:40)
[2017-02-08] MEDS: SODIUM CHLORIDE 0.9% FLUSH 10 ML FLUSH IV FLUSH SCH ×2 (10:41→21:00)
[2017-02-08] MEDS: DOCUSATE SODIUM 50 MG/SENNA 8.6 MG TAB PO SCH ×2 (10:49→21:00)
[2017-02-08] MEDS: POTASSIUM CHLORIDE 25 MEQ EFFERVESCENT TAB PO SCH ×2 (10:51→21:46)
[2017-02-08] MEDS: ENALAPRIL MALEATE 10 MG TAB PO SCH (11:04)
--- NOTE | 2017-02-08 12:32 | PQ ---
Physician Query Response Document PATIENT: CIELO WEBBER : 1935 ADMIT DATE: 02/06/2017 3:42 PM DISCH DATE: RESPONDING PROVIDER #: ALEA QUERY TEXT: Conflicting Documentation Clarification Documentation of multiple diagnoses for the same clinical presentation appears in the record. Please clarify the diagnosis/diagnoses. 1) SACRAL DECUBITUS ULCER STAGE 2 2) SACRAL DECUBITUS ULCER STAGE 3 3) Other, please specify PLEASE CALL [facility] @ [facility] [id number] FOR ASSISTANCE The patient's Clinical Indicators include: PER WOUND CARE CONSULT: small wound to sacral area ,Wound appears to be a full thickness stage 3. PER PROGRESS NOTE 02/08/17: Decubitus ulcer, stage 2 sacrum Query created by: Aniyah Arroyo on 02/08/2017 11:54 AM RESPONSE TEXT: SACRAL DECUB IS STAGE 3 Electronically signed by: Parth Reid 02/08/2017 12:27 PM
--- NOTE | 2017-02-08 12:33 | PD.VS.PN ---
Subjective Subjective/Hospital Course Pleasantly confused (Dementia, hx of) 81/AA/Obese female who has been non ambulatory for several months per FM Pt appears comfortable in NAD Malodorous dry gangrene to LEFT heel, plantar region of left foot and ankle for unknown duration of time Objective Vitals/I&O Date Time Temp Pulse Resp B/P (MAP) Pulse Ox O2 Delivery O2 Flow Rate FiO2 02/08/17 06:26 69 02/08/17 05:38 76 02/08/17 04:59 98.8 79 111/56 (74) 100 02/08/17 04:00 76 02/08/17 03:00 77 02/08/17 02:00 76 02/08/17 01:00 74 02/08/17 00:00 74 02/07/17 23:28 72 02/07/17 23:00 98.8 73 107/65 (79) 95 02/07/17 22:27 98.4 73 149/50 (83) 99 02/07/17 21:00 77 02/07/17 20:00 77 02/07/17 19:00 77 02/07/17 19:00 Room Air 02/07/17 15:00 98.9 86 16 132/75 (94) 02/08/17 02/08/17 02/08/17 07:00 15:00 23:00 Intake Total 120 ml Balance 120 ml Physical Exam GENERAL: Alert and Pleasantly confused/Obese/AA/F/ NAD noted SKIN: Warm and Dry Non palpable L DP/PT Malodorous ulcerations to Left heel, plantar aspect of left foot and ankle Laboratory Laboratory Tests Test 02/07/17 13:46 02/08/17 06:02 Total Creatine Kinase 412 Creatine Kinase MB 5.6 Creatine Kinase MB % 1.4 Troponin I 5.65 White Blood Count 18.4 Red Blood Count 2.83 Hemoglobin 8.5 Hematocrit 27.4 Mean Corpuscular Volume 96.8 Mean Corpuscular Hemoglobin 29.9 Mean Corpuscular Hemoglobin Concent 30.9 Red Cell Distribution Width 15.6 Platelet Count 336 Mean Platelet Volume 10.1 Neutrophils (%) (Auto) 84.1 Lymphocytes (%) (Auto) 9.3 Monocytes (%) (Auto) 5.5 Eosinophils (%) (Auto) 0.7 Basophils (%) (Auto) 0.4 Neutrophils # (Auto) 15.5 Lymphocytes # (Auto) 1.7 Monocytes # (Auto) 1.0 Eosinophils # (Auto) 0.1 Basophils # (Auto) 0.1 CBC Comment DIFF FINAL Differential Comment Blood Urea Nitrogen 20 Creatinine 1.08 Random Glucose 93 Total Protein 6.1 Albumin 1.7 Calcium Level 7.7 Phosphorus Level 1.8 Magnesium Level 2.6 Alkaline Phosphatase 93 Aspartate Amino Transf (AST/SGOT) 37 Alanine Aminotransferase (ALT/SGPT) 11 Total Bilirubin 0.4 Sodium Level 148 Potassium Level 4.0 Chloride Level 117 Carbon Dioxide Level 22.2 Anion Gap 9 Estimat Glomerular Filtration Rate 59 Date/Time Source Procedure Growth Status 02/06/17 13:25 Blood Peripheral Aerobic Blood Culture - Preliminary Gram Positive Rods Resulted 02/06/17 13:25 Anaerobic Blood Culture - Preliminary Gram Positive Rods Resulted 02/06/17 15:15 Urine Catheterized Urine Urine Culture - Preliminary NO GROWTH IN 24 HOURS. Resulted 02/06/17 13:15 Wound Foot Gram Stain - Final Resulted 02/06/17 13:15 Wound Culture - Preliminary Group D Enterococcus Resulted Imaging Last [address] 02/06/17 1249 Signed Impressions: Service Date/Time: Monday, February 06, 2017 14:45 - CONCLUSION: 1. Mild cortical atrophy and microvascular ischemic demyelinative change. 2. No acute intracranial abnormality is identified. Narciso Claros MD Chest X-Ray 02/06/17 1249 Signed Impressions: Service Date/Time: Monday, February 06, 2017 14:17 - CONCLUSION: 1. Degenerative changes in the shoulders bilaterally. 2. No acute cardiopulmonary findings. Narciso Claros MD Assessment and Plan Assessment: (1) Dry gangrene (2) Decubitus ulcer of ankle, unstageable Status: Chronic Plan Heel ulcer amounts to decubitus and clear osteo but no abscess on MRI. I don't think the foot is salvageable and she needs an AKA given nonambulatory status. I talked with one of her daughters (8 children) but will ask social work to get involved as well given issues laid out in H&P re: DCF. Likely AKA in next day or two. 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 Sargent on Tuesday02/11/17 Ramona OLIVEIRA [facility] [phone] Problem Qualifiers (1) Decubitus ulcer of ankle, unstageable: Qualified Codes: L89.520 - Pressure ulcer of left ankle, unstageable Ramona Reaves Feb 08, 2017 12:33
[2017-02-08] MEDS: POTASSIUM CHLORIDE INJ 10 MEQ in SODIUM CHLOR 0.9% 1000 ML INJ 1,000 ML IV SCH (14:22)
[2017-02-08] MEDS: VANCOMYCIN 1,500 MG/NS 500 ML IV SCH ×2 (17:59)
[2017-02-09] VITALS (28 sets, daily range): BP systolic 112–126; BP diastolic 65–92; PULSE 51–78; RESP 13–18; TEMP 97–98.4; O2SAT 94–100
[2017-02-09 02:48] LABS: C. DIFF EPI 027 PRESUMPTIVE NEGATIVE (NEGATIVE)
[2017-02-09] MEDS: PIPERACIL-TAZO 4.5 GM PREMIX 100 ML IV SCH ×4 (04:06→21:47)
[2017-02-09] MEDS: SODIUM CHLOR 0.9% 1000 ML INJ 1,000 ML IV SCH ×2 (04:07→14:30)
[2017-02-09] MEDS: HEPARIN SODIUM - SQ 10,000 UNITS/ML VIAL SQ SCH ×2 (04:07→16:28)
[2017-02-09] MEDS: NYSTATIN 100,000 UNIT/GM CREAM 15 GM TOPICAL SCH ×3 (05:26→21:49)
[2017-02-09] MEDS: NYSTATIN 100,000 U/GM PWD 15 GM BTL TOPICAL SCH ×3 (05:26→21:48)
[2017-02-09 06:28] LABS: HEMATOCRIT 29.9 % (35.0-46.0); MEAN CORPUSCULAR HEMOGLOBIN 29.9 PG (27.0-34.0); MEAN CORPUSCULAR HGB CONC 30.5 % (32.0-36.0); PLATELET COUNT 370 TH/MM3 (150-450); RED BLOOD COUNT 3.05 MIL/MM3 (4.00-5.30); RED CELL DISTRIBUTION WIDTH 15.7 % (11.6-17.2); WHITE BLOOD COUNT 21.6 TH/MM3 (4.0-11.0)
[2017-02-09 06:33] LABS: HEMO FLAGS AUTO DIFF
[2017-02-09 06:54] LABS: ALKALINE PHOSPHATASE 71 U/L (45-117); ALT (GPT) 15 U/L (10-53); ANION GAP 8 MEQ/L (5-15); AST (GOT) 53 U/L (15-37); BICARBONATE 19.3 MEQ/L (21.0-32.0); BLOOD UREA NITROGEN 19 MG/DL (7-18); CHLORIDE 119 MEQ/L (98-107); GLOMERULAR FILTRATION RATE 55 ML/MIN (>89); MAGNESIUM 2.4 MG/DL (1.5-2.5); SODIUM (NA) 146 MEQ/L (136-145); TOTAL BILIRUBIN ADULT 0.6 MG/DL (0.2-1.0)
[2017-02-09 06:55] LABS: POTASSIUM 5.3 MEQ/L (3.5-5.1)
[2017-02-09 07:12] LABS: BANDS 28 % (0-6); CORRECTED NUCLEATED RBC 2 /100 WBC (0-0); METAMYELOCYTES 1 % (0-1); MYELOCYTES 2 % (0-0); NEUTROPHIL # MANUAL DIFF 19.7 TH/MM3 (1.8-7.7); PLATELET ESTIMATE SMEAR NORMAL (NORMAL); PLATELET MORPHOLOGY NORMAL (NORMAL); POLYS (SEG NEUTROPHILS) 60 % (16-70); SCAN/DIFF FINAL DIFF MANUAL; WBC DIFF SAMPLE 100
[2017-02-09] MEDS: INSULIN ASPART SUPPLEMENTAL SCALE SQ SCH ×4 (08:00→21:00)
[2017-02-09] MEDS: PRAVASTATIN SOD 40 MG TAB PO SCH (08:59)
[2017-02-09] MEDS: ENALAPRIL MALEATE 10 MG TAB PO SCH (08:59)
[2017-02-09] MEDS: POTASSIUM CHLORIDE 10 MEQ CONTROLLED RELEASE TAB PO SCH (09:00)
[2017-02-09] MEDS: POTASSIUM CHLORIDE 25 MEQ EFFERVESCENT TAB PO SCH ×2 (09:00→21:00)
[2017-02-09] MEDS: SODIUM CHLORIDE 0.9% FLUSH 10 ML FLUSH IV FLUSH SCH ×2 (09:00→21:48)
[2017-02-09] MEDS: DOCUSATE SODIUM 50 MG/SENNA 8.6 MG TAB PO SCH ×2 (09:00→21:00)
[2017-02-09] MEDS: FUROSEMIDE 20 MG TAB PO SCH (09:01)
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
--- NOTE | 2017-02-09 12:34 | HHI.HCPN ---
Reason for visit a. To assist with evaluation and management of symptoms including:pain b. To assist medical decision maker(s) with: better understanding of current medical conditions; weighing benefits/burdens of medical treatment options; making medical treatment decisions. Subjective/Interval History Pt on my visit was sleeping comfortably. Pt per vascular is schedule to have surgery 02/11. Pt denies discomfort on my visit. Family/friend interactions I have called both Agnieszka Rm and Luann Trujillo (daughters) both reafirrmed they are the health care surrogate. Luann said she had been busy, but will bring in the copy of POA. Currently they are the only readily reachable family we have. Both endorse aggressive care, and Full Code status. Advance Directives Durable Power of Group Billing Coordinator: Completed, but not made available Objective Vital Signs Date Time Temp Pulse Resp B/P (MAP) Pulse Ox O2 Delivery O2 Flow Rate FiO2 02/09/17 12:09 58 02/09/17 11:04 55 02/09/17 11:03 98.4 65 13 122/92 (102) 100 02/09/17 10:02 66 02/09/17 09:21 78 02/09/17 08:00 65 02/09/17 07:47 68 02/09/17 07:06 98.4 68 13 122/92 (102) 100 02/09/17 06:16 60 02/09/17 05:00 68 02/09/17 04:44 98.3 71 113/76 (88) 100 02/09/17 04:23 99 02/09/17 04:00 68 02/09/17 03:00 59 02/09/17 02:00 64 02/09/17 01:00 64 02/09/17 00:00 62 02/08/17 23:00 98.4 67 118/62 (80) 99 02/08/17 23:00 66 02/08/17 22:00 70 02/08/17 21:00 70 02/08/17 20:00 97.3 60 107/66 (80) 97 02/08/17 20:00 64 02/08/17 19:00 65 02/08/17 18:00 78 02/08/17 17:00 76 02/08/17 16:00 72 02/08/17 15:00 84 02/08/17 15:00 98.1 75 15 140/32 (68) 100 02/08/17 14:00 70 02/08/17 13:00 72 Intake & Output 02/09/17 02/09/17 07:00 19:00 Intake Total 1120 ml Balance 1120 ml Intake Oral 120 ml IV Total 1000 ml # Voids 2 # Bowel Movements 2 Physical Exam CONSTITUTIONAL/GENERAL: This is obese elerly female, who is fatigued and frail. No grimacing or moaning and does not appear to be in distress. Mumbles incoherenly at times. TUBES/LINES/DRAINS:piv and case. SKIN: No jaundice, rashes, or lesions. Ecchymoses on upper extremities. necrotic heel. eschar in other area. reported decubitis ulcer at the back, did not force her to turn over. HEAD: Atraumatic. Normocephalic. EYES: Pupils equal and round and reactive. Extraocular motions intact. No scleral icterus. No injection or drainage. Fundi not examined. ENT: Hearing grossly normal. Nose without bleeding or purulent drainage. Throat without visible erythema, exudates, masses, or lesions. NECK: Trachea midline. Supple, nontender. No palpable thyroid enlargement or nodularity. CARDIOVASCULAR: Regular rate and rhythm without murmurs, gallops, or rubs. No JVD. Peripheral pulses symmetric. RESPIRATORY/CHEST: Symmetric, unlabored respirations. Clear to auscultation. Breath sounds equal bilaterally. No wheezes, rales, or rhonchi. GASTROINTESTINAL: Abdomen soft, non-tender, obese. No hepato-splenomegaly, or palpable masses. No guarding. Bowel sounds present. GENITOURINARY: Without palpable bladder distension. Case catheter in place. MUSCULOSKELETAL: Extremities without clubbing, cyanosis, or 2+ edema. LYMPHATICS: No palpable cervical or supraclavicular adenopathy. NEUROLOGICAL: Awake and alert. Motor and sensory grossly within normal limits.could not follow commands. Cognitively confused. PSYCHIATRIC: No obvious anxiety/depression. confuse Diagnostic Tests Laboratory Laboratory Tests Test 02/06/17 13:25 02/06/17 13:30 02/06/17 15:15 02/07/17 05:21 White Blood Count 16.1 TH/MM3 (4.0-11.0) 21.9 TH/MM3 (4.0-11.0) Red Blood Count 2.71 MIL/MM3 (4.00-5.30) 3.15 MIL/MM3 (4.00-5.30) Hemoglobin 8.4 GM/DL (11.6-15.3) 9.5 GM/DL (11.6-15.3) Hematocrit 26.4 % (35.0-46.0) 30.1 % (35.0-46.0) Mean Corpuscular Volume 97.1 FL (80.0-100.0) 95.4 FL (80.0-100.0) Mean Corpuscular Hemoglobin 30.9 PG (27.0-34.0) 30.2 PG (27.0-34.0) Mean Corpuscular Hemoglobin Concent 31.8 % (32.0-36.0) 31.6 % (32.0-36.0) Red Cell Distribution Width 15.2 % (11.6-17.2) 14.7 % (11.6-17.2) Platelet Count 313 TH/MM3 (150-450) 378 TH/MM3 (150-450) Mean Platelet Volume 8.9 FL (7.0-11.0) 9.3 FL (7.0-11.0) Neutrophils (%) (Auto) 86.5 % (16.0-70.0) 85.3 % (16.0-70.0) Lymphocytes (%) (Auto) 7.9 % (9.0-44.0) 7.6 % (9.0-44.0) Monocytes (%) (Auto) 5.1 % (0.0-8.0) 5.2 % (0.0-8.0) Eosinophils (%) (Auto) 0.1 % (0.0-4.0) 0.4 % (0.0-4.0) Basophils (%) (Auto) 0.4 % (0.0-2.0) 1.5 % (0.0-2.0) Neutrophils # (Auto) 13.9 TH/MM3 (1.8-7.7) 18.7 TH/MM3 (1.8-7.7) Lymphocytes # (Auto) 1.3 TH/MM3 (1.0-4.8) 1.7 TH/MM3 (1.0-4.8) Monocytes # (Auto) 0.8 TH/MM3 (0-0.9) 1.1 TH/MM3 (0-0.9) Eosinophils # (Auto) 0.0 TH/MM3 (0-0.4) 0.1 TH/MM3 (0-0.4) Basophils # (Auto) 0.1 TH/MM3 (0-0.2) 0.3 TH/MM3 (0-0.2) CBC Comment AUTO DIFF AUTO DIFF Differential Total Cells Counted 100 Neutrophils % (Manual) 77 % (16-70) Band Neutrophils % 13 % (0-6) Lymphocytes % 4 % (9-44) Monocytes % 5 % (0-8) Neutrophils # (Manual) 14.7 TH/MM3 (1.8-7.7) Myelocytes 1 % (0-0) Differential Comment FINAL DIFF MANUAL AUTO DIFF CONFIRMED Platelet Estimate NORMAL (NORMAL) NORMAL (NORMAL) Platelet Morphology Comment NORMAL (NORMAL) NORMAL (NORMAL) Prothrombin Time 13.4 SEC (9.8-11.6) Prothromb Time International Ratio 1.2 RATIO Activated Partial Thromboplast Time 35.9 SEC (24.3-30.1) Blood Urea Nitrogen 17 MG/DL (7-18) 22 MG/DL (7-18) Creatinine 0.74 MG/DL (0.50-1.00) 0.98 MG/DL (0.50-1.00) Random Glucose 145 MG/DL (74-106) 174 MG/DL (74-106) Total Protein 5.0 GM/DL (6.4-8.2) 6.6 GM/DL (6.4-8.2) Albumin 1.3 GM/DL (3.4-5.0) 1.8 GM/DL (3.4-5.0) Calcium Level 6.0 MG/DL (8.5-10.1) 8.0 MG/DL (8.5-10.1) Magnesium Level 1.7 MG/DL (1.5-2.5) 2.9 MG/DL (1.5-2.5) Alkaline Phosphatase 60 U/L (45-117) 77 U/L (45-117) Aspartate Amino Transf (AST/SGOT) 22 U/L (15-37) 27 U/L (15-37) Alanine Aminotransferase (ALT/SGPT) 9 U/L (10-53) 12 U/L (10-53) Total Bilirubin 0.6 MG/DL (0.2-1.0) 0.7 MG/DL (0.2-1.0) Sodium Level 148 MEQ/L (136-145) 144 MEQ/L (136-145) Potassium Level 2.8 MEQ/L (3.5-5.1) 3.9 MEQ/L (3.5-5.1) Chloride Level 120 MEQ/L (98-107) 111 MEQ/L (98-107) Carbon Dioxide Level 19.3 MEQ/L (21.0-32.0) 23.3 MEQ/L (21.0-32.0) Anion Gap 9 MEQ/L (5-15) 10 MEQ/L (5-15) Estimat Glomerular Filtration Rate 92 ML/MIN (>89) 66 ML/MIN (>89) Protein Corrected Calcium 7.0 MG/DL (8.5-10.1) Total Creatine Kinase 87 U/L (26-192) 135 U/L (26-192) Troponin I 4.87 NG/ML (0.02-0.05) 5.30 NG/ML (0.02-0.05) C-Reactive Protein 18.40 MG/DL (0.00-0.30) B-Type Natriuretic Peptide 603 PG/ML (0-100) Thyroid Stimulating Hormone 3rd Gen 0.889 uIU/ML (0.358-3.740) 1.940 uIU/ML (0.358-3.740) Lactic Acid Level 1.7 mmol/L (0.4-2.0) Urine Color ORANGE (YELLW/STRAW) Urine Turbidity CLOUDY (CLEAR) Urine pH 5.5 (5.0-8.5) Urine Specific [place] 1.029 (1.002-1.035) Urine Protein 30 mg/dL (NEG-TRACE) Urine Glucose (UA) NEG mg/dL (NEG) Urine Ketones TRACE mg/dL (NEG) Urine Occult Blood SMALL (NEG) Urine Nitrite NEG (NEG) Urine Bilirubin NEG (NEG) Urine Urobilinogen 8.0 MG/DL (LESS THAN Urine Leukocyte Esterase NEG (NEG) Urine RBC 25 /hpf (0-3) Urine WBC 28 /hpf (0-5) Urine WBC Clumps FEW (NONE) Urine Squamous Epithelial Cells 4 /hpf (0-5) Urine Bacteria RARE /hpf (NONE) Urine Hyaline Casts 7 /lpf (RARE) Urine Granular Casts 2 /lpf (NONE) Urine White Blood Cell Casts 2 /lpf (NONE) Urine Mucus MANY /lpf (OCC) Microscopic Urinalysis Comment CATH-CULTURE IND Red Cell Morphology Comment NORMAL (NORMAL) Phosphorus Level 2.0 MG/DL (2.5-4.9) Hemoglobin A1c 7.0 % (4.3-6.0) Triglycerides Level 126 MG/DL (42-150) Cholesterol Level 80 MG/DL (120-200) LDL Cholesterol 42 MG/DL (0-99) HDL Cholesterol 13.1 MG/DL (40.0-60.0) Cholesterol/HDL Ratio 6.10 RATIO Free Thyroxine 1.63 NG/DL (0.76-1.46) Test 02/07/17 13:46 02/08/17 06:02 02/09/17 01:40 02/09/17 06:20 Total Creatine Kinase 412 U/L (26-192) Creatine Kinase MB 5.6 NG/ML (0.5-3.6) Creatine Kinase MB % 1.4 % (0.0-4.0) Troponin I 5.65 NG/ML (0.02-0.05) White Blood Count 18.4 TH/MM3 (4.0-11.0) 21.6 TH/MM3 (4.0-11.0) Red Blood Count 2.83 MIL/MM3 (4.00-5.30) 3.05 MIL/MM3 (4.00-5.30) Hemoglobin 8.5 GM/DL (11.6-15.3) 9.1 GM/DL (11.6-15.3) Hematocrit 27.4 % (35.0-46.0) 29.9 % (35.0-46.0) Mean Corpuscular Volume 96.8 FL (80.0-100.0) 98.0 FL (80.0-100.0) Mean Corpuscular Hemoglobin 29.9 PG (27.0-34.0) 29.9 PG (27.0-34.0) Mean Corpuscular Hemoglobin Concent 30.9 % (32.0-36.0) 30.5 % (32.0-36.0) Red Cell Distribution Width 15.6 % (11.6-17.2) 15.7 % (11.6-17.2) Platelet Count 336 TH/MM3 (150-450) 370 TH/MM3 (150-450) Mean Platelet Volume 10.1 FL (7.0-11.0) 9.3 FL (7.0-11.0) Neutrophils (%) (Auto) 84.1 % (16.0-70.0) Lymphocytes (%) (Auto) 9.3 % (9.0-44.0) Monocytes (%) (Auto) 5.5 % (0.0-8.0) Eosinophils (%) (Auto) 0.7 % (0.0-4.0) Basophils (%) (Auto) 0.4 % (0.0-2.0) Neutrophils # (Auto) 15.5 TH/MM3 (1.8-7.7) Lymphocytes # (Auto) 1.7 TH/MM3 (1.0-4.8) Monocytes # (Auto) 1.0 TH/MM3 (0-0.9) Eosinophils # (Auto) 0.1 TH/MM3 (0-0.4) Basophils # (Auto) 0.1 TH/MM3 (0-0.2) CBC Comment DIFF FINAL AUTO DIFF Differential Comment FINAL DIFF MANUAL Blood Urea Nitrogen 20 MG/DL (7-18) 19 MG/DL (7-18) Creatinine 1.08 MG/DL (0.50-1.00) 1.15 MG/DL (0.50-1.00) Random Glucose 93 MG/DL (74-106) 109 MG/DL (74-106) Total Protein 6.1 GM/DL (6.4-8.2) 6.6 GM/DL (6.4-8.2) Albumin 1.7 GM/DL (3.4-5.0) 1.7 GM/DL (3.4-5.0) Calcium Level 7.7 MG/DL (8.5-10.1) 7.8 MG/DL (8.5-10.1) Phosphorus Level 1.8 MG/DL (2.5-4.9) 2.5 MG/DL (2.5-4.9) Magnesium Level 2.6 MG/DL (1.5-2.5) 2.4 MG/DL (1.5-2.5) Alkaline Phosphatase 93 U/L (45-117) 71 U/L (45-117) Aspartate Amino Transf (AST/SGOT) 37 U/L (15-37) 53 U/L (15-37) Alanine Aminotransferase (ALT/SGPT) 11 U/L (10-53) 15 U/L (10-53) Total Bilirubin 0.4 MG/DL (0.2-1.0) 0.6 MG/DL (0.2-1.0) Sodium Level 148 MEQ/L (136-145) 146 MEQ/L (136-145) Potassium Level 4.0 MEQ/L (3.5-5.1) 5.3 MEQ/L (3.5-5.1) Chloride Level 117 MEQ/L (98-107) 119 MEQ/L (98-107) Carbon Dioxide Level 22.2 MEQ/L (21.0-32.0) 19.3 MEQ/L (21.0-32.0) Anion Gap 9 MEQ/L (5-15) 8 MEQ/L (5-15) Estimat Glomerular Filtration Rate 59 ML/MIN (>89) 55 ML/MIN (>89) Stool C. difficile Toxin (PCR) NEGATIVE (NEGATIVE) Stl C. difficile Toxin Epiderm 027 PRESUMPTIVE NEGATIVE Differential Total Cells Counted 100 Neutrophils % (Manual) 60 % (16-70) Band Neutrophils % 28 % (0-6) Lymphocytes % 6 % (9-44) Monocytes % 3 % (0-8) Neutrophils # (Manual) 19.7 TH/MM3 (1.8-7.7) Metamyelocytes 1 % (0-1) Myelocytes 2 % (0-0) Nucleated Red Blood Cells 2 /100 WBC (0-0) Platelet Estimate NORMAL (NORMAL) Platelet Morphology Comment NORMAL (NORMAL) Result Diagram: 02/09/1761902/09/17619 Microbiology Microbiology Date/Time Source Procedure Growth Status 02/06/17 13:25 Blood Peripheral Aerobic Blood Culture - Preliminary Gram Positive Rods Resulted 02/06/17 13:25 Anaerobic Blood Culture - Preliminary Gram Positive Rods Resulted 02/06/17 13:15 Blood Peripheral Aerobic Blood Culture - Final Cornyebacterium Not Jk Complete 02/06/17 13:15 Anaerobic Blood Culture - Final Cornyebacterium Not Jk Complete 02/06/17 15:15 Urine Catheterized Urine Urine Culture - Final NO GROWTH IN 48 HOURS. Complete 02/06/17 13:15 Wound Foot Gram Stain - Final Complete 02/06/17 13:15 Wound Culture - Final Enterococcus Faecalis Complete Imaging Last Impressions Head CT 02/06/17 1249 Signed Impressions: Service Date/Time: Monday, February 06, 2017 14:45 - CONCLUSION: 1. Mild cortical atrophy and microvascular ischemic demyelinative change. 2. No acute intracranial abnormality is identified. Narciso Claros MD Chest X-Ray 02/06/17 1249 Signed Impressions: Service Date/Time: Monday, February 06, 2017 14:17 - CONCLUSION: 1. Degenerative changes in the shoulders bilaterally. 2. No acute cardiopulmonary findings. Narciso Claros MD Foot X-Ray 02/06/17 0000 Signed Impressions: Service Date/Time: Monday, February 06, 2017 14:19 - CONCLUSION: Soft tissue swelling and soft tissue air most notably in the hindfoot adjacent to the heel. no definite acute bony findings Jeramie Neely MD Foot MRI 02/06/17 0000 Signed Impressions: Service Date/Time: Monday, February 06, 2017 18:02 - CONCLUSION: Osteomyelitis involving the posterior calcaneus Jeramie Neely MD Ankle X-Ray 02/06/17 0000 Signed Impressions: Service Date/Time: Monday, February 06, 2017 14:19 - CONCLUSION: 1. Soft tissue defect with gas diffusely throughout the subcutaneous soft tissues of the heel and plantar surface of the foot. This is concerning for gangrenous changes with a gas-forming organism. There is cortical irregularity of the calcaneus suggesting osteomyelitis. 2. Severe degenerative changes within the ankle. 3. Diffuse soft tissue swelling. Narciso Claros MD Ankle MRI 02/06/17 0000 Signed Impressions: Service Date/Time: Monday, February 06, 2017 18:02 - CONCLUSION: Significant soft tissue deformity with cellulitis and osteomyelitis of the posterior calcaneus. No drainable fluid collections are seen to suggest abscess at this time. Yoan Subramanian MD Assessment and Plan Disease Oriented Problem List: (1) Decubitus ulcer of ankle, unstageable (2) CHF (congestive heart failure) (3) Elevated troponin (4) Decubitus ulcer, stage 3 with infection Symptom Scale: Pertinent Non-Medical Issues Psychosocial: Spiritual: Legal: Ethical issues impacting care: Important Contacts Agnieszka Rm (daughter) [phone]. Pt has 8 children total. Prognosis 81-year-old female with failure to thrive, left heel ulceration with osteomyelitis, dementia. If goals of care were comfort measures only patient would meet criteria. Code Status: Full Code Plan == Capacity- has dementia, no capacity to make medical decisions. == Decision Maker= Agnieszka Rm and Luann Cassandra state they are the POA, and Luann she will bring it in today or tomorrow. Currently both Agnieszka and Luann are the only readily reachable family == Goals of care. Agnieszka and Luann wish for continue medical treatment, Full Code. == Pain-diabetic, have ulcers. no new med rec. == palliative care will continue to follow. Attestation To help prompt me to consider important information that might be impacting today's encounter and assessment, information from prior notes written by myself or my colleagues may have been "brought forward" into today's note. My signature on this note, however, is an attestation that I personally performed the exam, history, and/or decision-making noted today, and, unless otherwise indicated, the interactions with patient, family, and staff as well as the review of records all occurred today. I also attest that the listed assessment and stated plan reflect my best clinical judgment today based on the combination of historical information, prior notes, and today's exam/ interactions. When time spent is documented, it refers only to time spent today by the signer, or if indicated, combined time spent today by collaborating physician/nurse practitioner. Eleno Luis MD Feb 09, 2017 12:34
[2017-02-09] MEDS: POTASSIUM CHLORIDE INJ 10 MEQ in SODIUM CHLOR 0.9% 1000 ML INJ 1,000 ML IV SCH (13:46)
[2017-02-09] MEDS ORDERED: PHARMACY ORDERED LAB ONE (15:45)
[2017-02-09] MEDS: VANCOMYCIN 1,500 MG/NS 500 ML IV SCH ×2 (16:00)
[2017-02-10] VITALS (23 sets, daily range): BP systolic 123–139; BP diastolic 50–81; PULSE 48–78; RESP 14–19; TEMP 97.5–98.4; O2SAT 91–100
[2017-02-10] MEDS: SODIUM CHLOR 0.9% 1000 ML INJ 1,000 ML IV SCH ×2 (00:30→03:44)
[2017-02-10] MEDS: PIPERACIL-TAZO 4.5 GM PREMIX 100 ML IV SCH ×3 (03:42→14:52)
[2017-02-10] MEDS: HEPARIN SODIUM - SQ 10,000 UNITS/ML VIAL SQ SCH ×2 (03:42→18:13)
[2017-02-10] MEDS: NYSTATIN 100,000 U/GM PWD 15 GM BTL TOPICAL SCH ×2 (03:43→13:04)
[2017-02-10] MEDS: NYSTATIN 100,000 UNIT/GM CREAM 15 GM TOPICAL SCH ×2 (03:43→13:04)
[2017-02-10] MEDS: POTASSIUM CHLORIDE 10 MEQ CONTROLLED RELEASE TAB PO SCH (08:23)
[2017-02-10] MEDS: POTASSIUM CHLORIDE 25 MEQ EFFERVESCENT TAB PO SCH ×2 (08:24→21:00)
[2017-02-10] MEDS: DOCUSATE SODIUM 50 MG/SENNA 8.6 MG TAB PO SCH ×2 (08:25→21:00)
[2017-02-10] MEDS: FUROSEMIDE 20 MG TAB PO SCH (08:56)
[2017-02-10] MEDS: INSULIN ASPART SUPPLEMENTAL SCALE SQ SCH ×4 (08:56→21:00)
[2017-02-10] MEDS: ENALAPRIL MALEATE 10 MG TAB PO SCH (08:56)
--- NOTE | 2017-02-10 08:56 | PD.VS.PN ---
Subjective Subjective/Hospital Course Pleasantly confused (Dementia, hx of) 81/AA/Obese female Pt laying in bed alert and appears comfortable in NAD Malodorous dry gangrene to LEFT heel, plantar region of left foot and ankle for unknown duration of time without change Objective Vitals/I&O Date Time Temp Pulse Resp B/P (MAP) Pulse Ox O2 Delivery O2 Flow Rate FiO2 02/10/17 06:01 48 02/10/17 05:01 64 02/10/17 04:01 63 02/10/17 03:01 56 02/10/17 03:01 97.9 58 18 123/71 (88) 96 02/10/17 02:01 65 02/10/17 01:01 56 02/10/17 00:01 58 02/09/17 23:01 51 02/09/17 23:01 98.3 63 18 112/65 (81) 97 02/09/17 22:16 95 21 02/09/17 21:01 59 02/09/17 20:01 78 02/09/17 18:19 60 02/09/17 17:29 64 02/09/17 16:11 58 02/09/17 15:21 97.0 58 18 126/84 (98) 94 02/09/17 15:19 58 02/09/17 14:33 62 02/09/17 13:28 60 02/09/17 12:09 58 02/09/17 11:04 55 02/09/17 11:03 98.4 65 13 122/92 (102) 100 02/09/17 10:02 66 02/09/17 09:21 78 02/10/17 02/10/17 02/10/17 07:00 15:00 23:00 Intake Total 1440 ml Balance 1440 ml Physical Exam GENERAL: Alert and Pleasantly confused/Obese/AA/F/ NAD noted SKIN: Warm and Dry LE warm Non palpable L DP/PT Malodorous ulcerations to Left heel, plantar aspect of left foot and ankle w/o change Laboratory Date/Time Source Procedure Growth Status 02/06/17 13:25 Blood Peripheral Aerobic Blood Culture - Preliminary Gram Positive Rods Resulted 02/06/17 13:25 Anaerobic Blood Culture - Preliminary Gram Positive Rods Resulted 02/06/17 15:15 Urine Catheterized Urine Urine Culture - Final NO GROWTH IN 48 HOURS. Complete 02/06/17 13:15 Wound Foot Gram Stain - Final Complete 02/06/17 13:15 Wound Culture - Final Enterococcus Faecalis Complete Assessment and Plan Assessment: (1) Dry gangrene (2) Decubitus ulcer of ankle, unstageable Status: Chronic Plan Heel ulcer amounts to decubitus and clear osteo but no abscess on MRI. I don't think the foot is salvageable and she needs an AKA given nonambulatory status. I talked with one of her daughters (8 children) but will ask social work to get involved as well given issues laid out in H&P re: DCF. Likely AKA in next day or two. Jonathan Sargent MD FACS VI news gathering technician [facility] - Heart [facility] V[facility] Surgery at [facility] [phone] Plan Consent obtained and placed in the chart Pt scheduled for L AKA tomorrow am w/ Dr. Sargent NPO after midnight Ramona Reaves [facility] [phone] Problem Qualifiers (1) Decubitus ulcer of ankle, unstageable: Qualified Codes: L89.520 - Pressure ulcer of left ankle, unstageable Ramona Reaves Feb 10, 2017 08:56
[2017-02-10] MEDS: SODIUM CHLORIDE 0.9% FLUSH 10 ML FLUSH IV FLUSH SCH (08:57)
[2017-02-10] MEDS: PRAVASTATIN SOD 40 MG TAB PO SCH (08:58)
[2017-02-10] MEDS ORDERED: EPINEPHrine HCL (1:10,000) 1 MG/10 ML SYRINGE ONE (09:50)
[2017-02-10] MEDS ORDERED: ATROPINE SULFATE 1 MG/10 ML SYRINGE ONE (09:50)
[2017-02-10] MEDS ORDERED: GADODIAMIDE PF 287 MG/ML 20 ML VIAL (for RAD MRI) IVCONTRAST ONE (10:45)
--- NOTE | 2017-02-10 11:28 | RADRPT ---
EXAM DATE/TIME: 02/10/2017 10:03 [facility] COMPARISON: No previous studies available for comparison. INDICATIONS : Loss of pulses on right foot. Posstible infection with no visible wound. CONTRAST: 20 cc Omniscan (gadodiamide) IV MEDICAL HISTORY : Diabetes mellitus type 2. Hypertension. Dementia. SURGICAL HISTORY : None. ENCOUNTER: Subsequent ACUITY: 4-6 days PAIN SCORE: 0/10 LOCATION: Right foot TECHNIQUE: Multiplanar, multisequence MRI examination was performed without contrast and after the intravenous a dministration of gadolinium. FINDINGS: BONE/CARTILAGE: Bone marrow signal is homogeneous. Articular cartilage signal is within normal limits. TENDONS: All of the visualized tendons are intact. MISCELLANEOUS: Subcutaneous soft tissue swelling is seen along the dorsum of the mid foot. There is no evidence of d eep inflammation. There are no abnormal fluid collections. Plantar aponeurosis is intact. Sinus tarsi is within normal limits. POST-CONTRAST: There are no abnormal areas of enhancement on the post-contrast images. CONCLUSION: Subcutaneous soft tissue swelling along the dorsum of the midfoot. No evidence of deep involvement, abnormal fluid collections, bone marrow edema or destructive bone ch anges. Gilberto Messer MD on February 10, 2017 at 11:24 Board Certified Radiologist. This report was verified electronically.
--- NOTE | 2017-02-10 11:32 | RADRPT ---
EXAM DATE/TIME: 02/10/2017 10:03 [facility] COMPARISON: No previous studies available for comparison. INDICATIONS : Loss of pulses on right foot. Posstible infection with no visible wound. CONTRAST: 20 cc Omniscan (gadodiamide) IV MEDICAL HISTORY : Diabetes mellitus type 2. Hypertension. Dementia. SURGICAL HISTORY : None. ENCOUNTER: Subsequent ACUITY: 4-6 days PAIN SCORE: 0/10 LOCATION: Right ankle TECHNIQUE: Multiplanar, multisequence MRI examination was performed without contrast and after the intravenous a dministration of gadolinium. FINDINGS: BONE/CARTILAGE: Bone marrow signal is homogeneous. A small osteochondral abnormality is seen along the lateral dome o f the talus. There is no evidence of associated edema or fluid. This has a chronic appearance. Articu lar cartilage signal is otherwise within normal limits. TENDONS: All of the visualized tendons are intact. LIGAMENTS: The lateral and medial ligament complexes are intact. MISCELLANEOUS: Soft tissue swelling extending from the anterior ankle into the midfoot is noted. The plantar aponeur osis is intact. The tarsal tunnel is within normal limits. POST-CONTRAST: No abnormal areas of enhancement on the post-contrast images. CONCLUSION: 1. Small osteochondral lesion along the lateral dome of the talus which has a chronic appearance. 2. Mild subcutaneous anterior soft tissue swelling. 3. No evidence of bone marrow edema or destructive bone changes. 4. No evidence of focal wound or abscess. Gilberto Messer MD on February 10, 2017 at 11:27 Board Certified Radiologist. This report was verified electronically.
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
[2017-02-10] MEDS: POTASSIUM CHLORIDE INJ 10 MEQ in SODIUM CHLOR 0.9% 1000 ML INJ 1,000 ML IV SCH (13:05)
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
[2017-02-10] MEDS: SODIUM CHLOR 0.45% 1000 ML INJ 1,000 ML IV SCH (15:34)
[2017-02-10] MEDS ORDERED: PHARMACY ORDERED LAB ONE (15:45)
[2017-02-10] MEDS ORDERED: SODIUM CHLOR 0.45% 500 ML INJ 500 ML IV ONE (16:00)
[2017-02-10] MEDS: VANCOMYCIN 1,500 MG/NS 500 ML IV SCH ×2 (18:14)
[2017-02-10 18:30] LABS: VANCOMYCIN TROUGH 26.6 MCG/ML (5.0-10.0)
[2017-02-10 20:39] LABS: ALKALINE PHOSPHATASE 77 U/L (45-117); ANION GAP 10 MEQ/L (5-15); AST (GOT) 52 U/L (15-37); BICARBONATE 15.8 MEQ/L (21.0-32.0); BLOOD UREA NITROGEN 18 MG/DL (7-18); CHLORIDE 121 MEQ/L (98-107); GLOMERULAR FILTRATION RATE 59 ML/MIN (>89); MAGNESIUM 2.2 MG/DL (1.5-2.5); POTASSIUM 3.8 MEQ/L (3.5-5.1); SODIUM (NA) 147 MEQ/L (136-145); TOTAL BILIRUBIN ADULT 0.3 MG/DL (0.2-1.0)
[2017-02-10 20:57] LABS: ALT (GPT) 18 U/L (10-53)
[2017-02-11] VITALS (23 sets, daily range): BP systolic 130–150; BP diastolic 75–89; PULSE 60–86; RESP 16–20; TEMP 97.7–98.9; O2SAT 97–100
[2017-02-11] MEDS ORDERED: CHLORHEXIDINE GLUCONATE 2 % 1 PACK (2 CLOTHS) TOPICAL PRN (00:45)
[2017-02-11] MEDS ORDERED: METOPROLOL TARTRATE 25 MG TAB PO PRN (00:45)
[2017-02-11] MEDS ORDERED: SODIUM CHLORID 0.9% 500 ML IV PRN (00:45)
[2017-02-11] MEDS ORDERED: POVIDONE IODINE 5% (ANTISEPSIS KIT) 4 APPLICATIONS EACH NARE PRN (00:45)
[2017-02-11] MEDS ORDERED: INSULIN HUMAN REGULAR 1,000 UNITS/10 ML VIAL SQ PRN (00:45)
[2017-02-11] MEDS ORDERED: LACTATED RINGER'S 1000 ML IV PRN (00:45)
[2017-02-11] MEDS: PIPERACIL-TAZO 4.5 GM PREMIX 100 ML IV SCH ×5 (01:31→21:30)
[2017-02-11] MEDS: SODIUM CHLORIDE 0.9% FLUSH 10 ML FLUSH IV FLUSH SCH ×3 (01:32→21:30)
[2017-02-11] MEDS: NYSTATIN 100,000 UNIT/GM CREAM 15 GM TOPICAL SCH ×4 (01:37→21:30)
[2017-02-11] MEDS: NYSTATIN 100,000 U/GM PWD 15 GM BTL TOPICAL SCH ×4 (01:38→21:30)
[2017-02-11] MEDS: HEPARIN SODIUM - SQ 10,000 UNITS/ML VIAL SQ SCH ×2 (03:55→17:53)
[2017-02-11 05:15] LABS: AUTOMATED NEUTROPHIL # 14.9 TH/MM3 (1.8-7.7); BASOPHIL # 0.1 TH/MM3 (0-0.2); BASOPHIL % 0.7 % (0.0-2.0); EOSINOPHIL # 0.1 TH/MM3 (0-0.4); EOSINOPHIL % 0.8 % (0.0-4.0); HEMATOCRIT 29.7 % (35.0-46.0); LYMPH % 14.4 % (9.0-44.0); LYMPHOCYTE # 2.7 TH/MM3 (1.0-4.8); MEAN CELL VOLUME 97.9 FL (80.0-100.0); MEAN CORPUSCULAR HEMOGLOBIN 30.1 PG (27.0-34.0); MEAN CORPUSCULAR HGB CONC 30.8 % (32.0-36.0); NEUT % 79.1 % (16.0-70.0); PLATELET COUNT 304 TH/MM3 (150-450); RED BLOOD COUNT 3.04 MIL/MM3 (4.00-5.30); RED CELL DISTRIBUTION WIDTH 15.7 % (11.6-17.2); WHITE BLOOD COUNT 18.8 TH/MM3 (4.0-11.0)
[2017-02-11 05:19] LABS: HEMO FLAGS AUTO DIFF
[2017-02-11 06:44] LABS: BANDS 19 % (0-6); NEUTROPHIL # MANUAL DIFF 16.2 TH/MM3 (1.8-7.7); POLYS (SEG NEUTROPHILS) 67 % (16-70); WBC DIFF SAMPLE 100
[2017-02-11 06:45] LABS: SCAN/DIFF FINAL DIFF MANUAL
[2017-02-11] MEDS: INSULIN ASPART SUPPLEMENTAL SCALE SQ SCH ×4 (07:11→21:30)
[2017-02-11 08:17] LABS: BICARBONATE 18.1 MEQ/L (21.0-32.0); POTASSIUM 3.6 MEQ/L (3.5-5.1)
--- NOTE | 2017-02-11 08:49 | HHI.PR ---
Subjective Remarks Went for surgery. The patient was seen later. Status post amputation surgery. Resting in bed, appears in no acute distress. Dressing is clean no bleeding. She is hungry. No nausea or vomiting, no diarrhea or constipation. Denies fevers or chills. Smiling. Objective Vitals Vital Signs Date Time Temp Pulse Resp B/P (MAP) Pulse Ox O2 Delivery O2 Flow Rate FiO2 02/11/17 06:00 65 02/11/17 05:00 64 02/11/17 04:00 64 02/11/17 03:47 98.9 66 16 150/85 (106) 97 02/11/17 03:00 60 02/11/17 02:00 64 02/11/17 01:00 68 02/11/17 00:00 98.7 68 16 148/82 (104) 98 02/11/17 00:00 64 02/10/17 23:00 62 02/10/17 22:00 64 02/10/17 21:00 66 02/10/17 20:00 66 02/10/17 20:00 98.4 62 14 139/50 (79) 100 02/10/17 19:00 60 02/10/17 18:34 69 02/10/17 17:00 71 02/10/17 16:05 65 02/10/17 15:54 67 02/10/17 15:54 97.6 75 19 134/81 (98) 99 02/10/17 14:08 78 02/10/17 13:00 60 02/10/17 12:00 54 02/10/17 11:00 97.5 62 18 123/67 (85) 91 02/10/17 09:00 54 I/O 02/10/17 02/10/17 02/10/17 02/11/17 02/11/17 02/11/17 07:00 15:00 23:00 07:00 15:00 23:00 Intake Total 1440 ml 100 ml 2145 ml 480 ml Balance 1440 ml 100 ml 2145 ml 480 ml Intake Oral 240 ml 720 ml 480 ml IV Total 1200 ml 100 ml 1425 ml # Voids 2 3 3 # Bowel Movements 1 1 0 Result Diagram: 02/11/17 0448 02/11/17 0448 Imaging Last Impressions Foot MRI 02/10/17 1548 Signed Impressions: Service Date/Time: January 10:03 - CONCLUSION: Subcutaneous soft tissue swelling along the dorsum of the midfoot. No evidence of deep involvement, abnormal fluid collections, bone marrow edema or destructive bone changes. Gilberto Messer MD Ankle MRI 02/10/17 1548 Signed Impressions: Service Date/Time: January 10:03 - CONCLUSION: 1. Small osteochondral lesion along the lateral dome of the talus which has a chronic appearance. 2. Mild subcutaneous anterior soft tissue swelling. 3. No evidence of bone marrow edema or destructive bone changes. 4. No evidence of focal wound or abscess. Gilberto Messer MD Head CT 02/06/17 1249 Signed Impressions: Service Date/Time: Monday, February 06, 2017 14:45 - CONCLUSION: 1. Mild cortical atrophy and microvascular ischemic demyelinative change. 2. No acute intracranial abnormality is identified. Narciso Claros MD Chest X-Ray 02/06/17 1249 Signed Impressions: Service Date/Time: Monday, February 06, 2017 14:17 - CONCLUSION: 1. Degenerative changes in the shoulders bilaterally. 2. No acute cardiopulmonary findings. Narciso Claros MD Foot X-Ray 02/06/17 0000 Signed Impressions: Service Date/Time: Monday, February 06, 2017 14:19 - CONCLUSION: Soft tissue swelling and soft tissue air most notably in the hindfoot adjacent to the heel. no definite acute bony findings Jeramie Neely MD Ankle X-Ray 02/06/17 0000 Signed Impressions: Service Date/Time: Monday, February 06, 2017 14:19 - CONCLUSION: 1. Soft tissue defect with gas diffusely throughout the subcutaneous soft tissues of the heel and plantar surface of the foot. This is concerning for gangrenous changes with a gas-forming organism. There is cortical irregularity of the calcaneus suggesting osteomyelitis. 2. Severe degenerative changes within the ankle. 3. Diffuse soft tissue swelling. Narciso Claros MD Objective Remarks GENERAL: This is a well-nourished, obese patient who appears unkept CARDIOVASCULAR: Regular rate and rhythm without murmurs, gallops, or rubs. Diminished pedal pulses. S1, S2 NO S3 OR S4 RESPIRATORY: Clear to auscultation. Breath sounds equal bilaterally. No wheezes , rales, or rhonchi. GASTROINTESTINAL: Abdomen soft, obese, non-tender, nondistended. No hepato- splenomegaly, or palpable masses. No guarding. MUSCULOSKELETAL: Extremities without clubbing, s/p left BKA dressing on c/d/i. NEUROLOGICAL: Awake and alert to self. Motor and sensory grossly within normal limits. Normal speech. PSYCHIATRIC: Poor insight and judgement. Procedures S/P AKA 02/11/[address] Sargent A/P Problem List: (1) Decubitus ulcer, stage 3 with infection ICD Code: L89.93 - Pressure ulcer of unspecified site, stage 3; L08.9 - Local infection of the skin and subcutaneous tissue, unspecified Status: Acute (2) Elevated troponin ICD Code: R74.8 - Abnormal levels of other serum enzymes Status: Acute (3) CHF (congestive heart failure) ICD Code: I50.9 - Heart failure, unspecified Status: Acute (4) Hypocalcemia ICD Code: E83.51 - Hypocalcemia Status: Acute (5) Hypokalemia ICD Code: E87.6 - Hypokalemia Status: Acute (6) Decubitus ulcer of ankle, unstageable ICD Code: L89.500 - Pressure ulcer of unspecified ankle, unstageable Status: Chronic Assessment and Plan 81 y/o female with a history of Dementia, CHF, DM, and Hyperlipidemia was brought into the ED by family with complaints of a open left heal wound. Decubitus ulcer, unchangeable on left ankle/ heel,, stage 2 sacrum S/P AKA 02/[address] Sargent for large left heel ulcer per [facility] surgery recommendations. Left ankle x ray reviewed and shows soft tissue defect with gas throughout, left foot x-ray show soft tissue swelling and soft tissue air C reactive protein 18.4 -MRI foot and ankle bilateral ordered r/o osteomyelitis -Consult Podiatry and wound care and vascular surgery, ff -Elevated heels, sofcare mattress ordered -On Vancomyacin and Zosyn IV -Pain management with IV morphine and PO Percocet CHF, chronic, diastolic Last Echo 05/2014 Showed Wall thickness increased with mild LVH, EF 55-60% BNP 603 Chest x ray reviewed and shows no fluid overload -Repeat Echo ordered -Monitor for fluid overload -Resume home lasix Elevated troponin, troponin 4.87, EKG reviewed and shows no ST elevation -Serial troponin and Ekgs -Consult cardiology Hypokalemia and hypocalcemia Potassium 2.8, protein corrected calcium 7.0 -Supplementation ordered, continue to trend and replace as needed -Resume home potassium supplement GLUCERNA TID- CONSULT NUTRITION Severe protein calorie malnutrition consult geriatric physical therapist Self care deficit, total -Patient can not return to living condition, DCF has been notified -Palliative consult ordered -PT/OT.ST eval ordered Cutaneous candidiasis: antifungals DVT prophylaxis: SCDs and Heparin Discharge Planning S/P amputation left AKA for large left heel wound 02/11/[address] Dianna keita surg DCF involvement, likely needs SNF at [place] Problem Qualifiers (1) CHF (congestive heart failure): Qualified Codes: I50.9 - Heart failure, unspecified (2) Decubitus ulcer of ankle, unstageable: Qualified Codes: L89.520 - Pressure ulcer of left ankle, unstageable Shawna Werner MD Feb 11, 2017 08:48
[2017-02-11] MEDS: ENALAPRIL MALEATE 10 MG TAB PO SCH (09:00)
[2017-02-11] MEDS: PRAVASTATIN SOD 40 MG TAB PO SCH (09:00)
[2017-02-11] MEDS: DOCUSATE SODIUM 50 MG/SENNA 8.6 MG TAB PO SCH ×2 (09:00→21:30)
[2017-02-11] MEDS: FUROSEMIDE 20 MG TAB PO SCH (09:00)
[2017-02-11] MEDS: POTASSIUM CHLORIDE 25 MEQ EFFERVESCENT TAB PO SCH ×2 (09:00→21:30)
[2017-02-11] MEDS: POTASSIUM CHLORIDE 10 MEQ CONTROLLED RELEASE TAB PO SCH (09:00)
--- NOTE | 2017-02-11 09:17 | HHI.PR ---
cc: Yin Julianbraxtonyuniel DPM Immediate Post Op Note Procedure Date: Feb 11, 2017 Pre Op Diagnosis: Unreconstructable PAD, L LE tissue loss, non-ambulatory Post Op Diagnosis: Unreconstructable PAD, L LE tissue loss, non-ambulatory Surgeon: Jonathan Sargent .Net Programmer(s): Eleno Mccallum, MS4 Procedure: L AKA Findings: occluded popoliteal artery no infection at level of amputation Complications: none Specimen(s) removed: LEFT leg - to pathology Estimated blood loss: 100mL Anesthesia: General Drains: None Fluids: 300mL IVF Patient to: PACU Patient Condition: Good Date/Time of Procedure: SEE SURGICAL CARE RECORD Jonathan Sargent MD Feb 11, 2017 09:17
--- NOTE | 2017-02-11 09:50 | HHI.HCPN ---
Pt still in recovery room. I was able to meet with the family (Luann Luna, Agnieszka) with Vascular Surgeon and give update. Spoke with Al over the phone. Goals of care set, continue medical management, anticipate will need placement. Full code. They are hopeful pt will recover. Luann indicate she can still get POA. I said once she get it please give a copy to the hospital; but until then Proxy is all 8 children. The majority wants Agnieszka Rm to be the point of contact for medical information. Palliative Care will follow along as needed. Goals of care appears to be set. Eleno Luis M.D. Eleno Luis MD Feb 11, 2017 09:50
[2017-02-11] MEDS ORDERED: *morphine SULFATE 8 MG/ML PERIprocedure ONLY ONE (10:07)
--- NOTE | 2017-02-11 10:12 | MP ---
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 PROCEDURE Left above-knee amputation. ATTENDING SURGEON Obed Sargent. ASSISTANTS Eleno Laughlin, Tito Mccallum, MS IV. ANESTHESIA General. INDICATION Mrs. Trujillo is a 81-year-old woman who has left lower extremity tissue loss. She has no palpable pulses. She has not walked in five months and is under the care of her children. After a long discussion was held with five of the patient's children, because of the patient's demented state, we offered the family an above-knee amputation. DESCRIPTION OF PROCEDURE An informed consent was obtained from the patient's children and approved by the palliative care and medical services. The patient was taken to the operating room and placed supine on the operating table. An appropriate timeout was taken to ensure the patient's identity, operative site and planned procedure. The administration of antibiotics was completed prior to skin incision and will be continued postoperatively for ongoing therapy. Everyone's in the room agreed with the timeout and we proceeded. Her left leg was prepped and draped. An incision was made above the knee, carried down in the subcutaneous tissue with electrocautery. The incision was fish-mouthed medially and laterally and then carried down in the subcutaneous tissue with electrocautery. The femur was divided with an oscillating saw. The posterior muscle and skin was divided with Bovie. The occluded popliteal artery was clamped with hemostats, divided and suture ligatured proximally. Similarly the femoral vein was controlled. The leg was passed off the table as a specimen. The wound was irrigated, made hemostatic and closed with 2-0 Polysorb and skin twyla. The sponge and needle counts were correct at the end of the case. I was present and scrubbed and performed the entire procedure. MD POP Valdez/CASIE /9:49 AM /9:54 AM
[2017-02-11] MEDS ORDERED: DO NOT ADM ANY ANTICOAGULANT DRUGS PRN (10:30)
[2017-02-11] MEDS ORDERED: LIDOCAINE HCL 1% PF 5 ML AMPULE OTHER ONE (12:00)
[2017-02-11] MEDS ORDERED: PROPOFOL 200 MG/20 ML AMP IV ONE (12:00)
[2017-02-11] MEDS ORDERED: NEOSTIGMINE 3 MG/3 ML SYR IV ONE (12:00)
[2017-02-11] MEDS ORDERED: ROCURONIUM INJ 50 MG/5 ML SYRINGE IV PUSH ONE (12:00)
[2017-02-11] MEDS ORDERED: MORPHINE SULFATE 4 MG/ML INJ IV ONE (12:00)
[2017-02-11] MEDS ORDERED: NORMOSOL R INJ 1,000 ML IV ONE (12:00)
[2017-02-11] MEDS ORDERED: GLYCOPYRROLATE 1 MG/5 ML SYRINGE IV PUSH ONE (12:00)
[2017-02-11] MEDS ORDERED: SUCCINYLCHOLINE CHLORIDE 100 MG/5 ML SYRINGE IV PUSH ONE (12:00)
[2017-02-11] MEDS ORDERED: PHENYLEPH/NS 1000 MCG/10 ML SYR IV ONE (12:00)
[2017-02-11] MEDS: SODIUM CHLOR 0.45% 1000 ML INJ 1,000 ML IV SCH (15:04)
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
[2017-02-12] VITALS (26 sets, daily range): BP systolic 131–155; BP diastolic 57–84; PULSE 62–84; RESP 18–20; TEMP 97.9–98.7; O2SAT 100
[2017-02-12] MEDS: PIPERACIL-TAZO 4.5 GM PREMIX 100 ML IV SCH ×4 (04:02→21:21)
[2017-02-12] MEDS: HEPARIN SODIUM - SQ 10,000 UNITS/ML VIAL SQ SCH ×2 (04:02→17:54)
[2017-02-12] MEDS: NYSTATIN 100,000 UNIT/GM CREAM 15 GM TOPICAL SCH ×3 (04:03→21:20)
[2017-02-12] MEDS: NYSTATIN 100,000 U/GM PWD 15 GM BTL TOPICAL SCH ×3 (04:03→21:21)
--- NOTE | 2017-02-12 07:31 | PD.VS.PN ---
Subjective POD #: 1 Procedure(s): L AKA Subjective/Hospital Course resting comfortably does not appear to be in pain KOBE wrap in place Objective Vitals/I&O Date Time Temp Pulse Resp B/P (MAP) Pulse Ox O2 Delivery O2 Flow Rate FiO2 02/12/17 06:00 74 02/12/17 05:00 68 02/12/17 04:00 78 02/12/17 03:37 98.3 78 18 144/76 (98) 100 02/12/17 03:00 78 02/12/17 02:00 70 02/12/17 01:00 80 02/12/17 00:00 74 02/11/17 23:30 83 18 145/89 (107) 100 02/11/17 23:00 68 02/11/17 22:00 72 02/11/17 21:00 70 02/11/17 20:00 68 02/11/17 19:35 98.2 86 20 145/79 (101) 100 02/11/17 19:00 73 02/11/17 18:17 65 02/11/17 17:54 78 02/11/17 16:03 60 02/11/17 15:30 97.7 67 16 138/75 (96) 100 02/11/17 15:30 60 02/11/17 14:18 68 02/11/17 13:04 70 02/11/17 12:44 68 02/11/17 11:16 62 02/11/17 11:16 97.7 61 16 130/76 (94) 100 02/11/17 11:12 16 02/11/17 10:15 62 16 115/58 (77) 100 Room Air 02/11/17 10:00 64 21 135/66 (89) 100 Nasal Cannula 4 02/11/17 09:48 97.5 63 21 135/66 (89) 100 Simple Mask 8 02/12/17 02/12/17 02/12/17 07:00 15:00 23:00 Intake Total 300 ml Balance 300 ml Exam: L AKA wrapped no drainage noted minimal drainage in Provena Laboratory Date/Time Source Procedure Growth Status 02/10/17 17:51 Blood Peripheral Aerobic Blood Culture - Preliminary NO GROWTH IN 1 DAY Resulted 02/10/17 17:51 Blood Peripheral Anaerobic Blood Culture - Preliminary NO GROWTH IN 1 DAY Resulted 02/06/17 15:15 Urine Catheterized Urine Urine Culture - Final NO GROWTH IN 48 HOURS. Complete 02/06/17 13:15 Wound Foot Gram Stain - Final Complete 02/06/17 13:15 Wound Culture - Final Enterococcus Faecalis Complete Assessment and Plan Assessment: (1) Dry gangrene (2) Decubitus ulcer of ankle, unstageable Status: Chronic Plan POD#1 s/p L AKA continue compression and Provena until Tuesday ok to get OOB d/c planning - can d/c as early as Tuesday Problem Qualifiers (1) Decubitus ulcer of ankle, unstageable: Qualified Codes: L89.520 - Pressure ulcer of left ankle, unstageable Jonathan Sargent MD Feb 12, 2017 07:31
[2017-02-12] MEDS: INSULIN ASPART SUPPLEMENTAL SCALE SQ SCH ×4 (08:00→21:00)
[2017-02-12] MEDS: DOCUSATE SODIUM 50 MG/SENNA 8.6 MG TAB PO SCH ×2 (09:00→21:00)
[2017-02-12] MEDS: ENALAPRIL MALEATE 10 MG TAB PO SCH (09:02)
[2017-02-12] MEDS: PRAVASTATIN SOD 40 MG TAB PO SCH (09:02)
[2017-02-12] MEDS: POTASSIUM CHLORIDE 25 MEQ EFFERVESCENT TAB PO SCH ×2 (09:03→21:20)
[2017-02-12] MEDS: FUROSEMIDE 20 MG TAB PO SCH (09:03)
[2017-02-12] MEDS: SODIUM CHLORIDE 0.9% FLUSH 10 ML FLUSH IV FLUSH SCH ×2 (09:11→21:20)
--- NOTE | 2017-02-12 09:51 | HHI.PR ---
Subjective Remarks More awake and alert, appears in nad. Pleasantly confused. Family at bedside. Patient say she has no pain at this time in her legs. Patient denies chest pain , sob, n/v/d/c. Eating fairly well says she has a good appetite. Objective Vitals Vital Signs Date Time Temp Pulse Resp B/P (MAP) Pulse Ox O2 Delivery O2 Flow Rate FiO2 02/12/17 06:00 74 02/12/17 05:00 68 02/12/17 04:00 78 02/12/17 03:37 98.3 78 18 144/76 (98) 100 02/12/17 03:00 78 02/12/17 02:00 70 02/12/17 01:00 80 02/12/17 00:00 74 02/11/17 23:30 83 18 145/89 (107) 100 02/11/17 23:00 68 02/11/17 22:00 72 02/11/17 21:00 70 02/11/17 20:00 68 02/11/17 19:35 98.2 86 20 145/79 (101) 100 02/11/17 19:00 73 02/11/17 18:17 65 02/11/17 17:54 78 02/11/17 16:03 60 02/11/17 15:30 97.7 67 16 138/75 (96) 100 02/11/17 15:30 60 02/11/17 14:18 68 02/11/17 13:04 70 02/11/17 12:44 68 02/11/17 11:16 62 02/11/17 11:16 97.7 61 16 130/76 (94) 100 02/11/17 11:12 16 02/11/17 10:15 62 16 115/58 (77) 100 Room Air 02/11/17 10:00 64 21 135/66 (89) 100 Nasal Cannula 4 I/O 02/11/17 02/11/17 02/11/17 02/12/17 02/12/17 02/12/17 07:00 15:00 23:00 07:00 15:00 23:00 Intake Total 480 ml 300 ml 780 ml 300 ml Output Total 100 ml 1 ml Balance 480 ml 200 ml 779 ml 300 ml Intake Oral 480 ml 480 ml 200 ml IV Total 300 ml 100 ml Other 300 ml Output Urine Total 1 ml Estimated Blood Loss 100 ml # Voids 3 1 # Bowel Movements 0 0 1 Result Diagram: 02/11/1744702/11/17447 Imaging Last Impressions Foot MRI 02/10/171547 Signed Impressions: Service Date/Time: January 10:03 - CONCLUSION: Subcutaneous soft tissue swelling along the dorsum of the midfoot. No evidence of deep involvement, abnormal fluid collections, bone marrow edema or destructive bone changes. Gilberto Messer MD Ankle MRI 02/10/171547 Signed Impressions: Service Date/Time: January 10:03 - CONCLUSION: 1. Small osteochondral lesion along the lateral dome of the talus which has a chronic appearance. 2. Mild subcutaneous anterior soft tissue swelling. 3. No evidence of bone marrow edema or destructive bone changes. 4. No evidence of focal wound or abscess. Gilberto Messer MD Head CT 02/06/171248 Signed Impressions: Service Date/Time: Monday, February 06, 2017 14:45 - CONCLUSION: 1. Mild cortical atrophy and microvascular ischemic demyelinative change. 2. No acute intracranial abnormality is identified. Narciso Claros MD Chest X-Ray 02/06/171248 Signed Impressions: Service Date/Time: Monday, February 06, 2017 14:17 - CONCLUSION: 1. Degenerative changes in the shoulders bilaterally. 2. No acute cardiopulmonary findings. Narciso Claros MD Foot X-Ray 02/06/17 0000 Signed Impressions: Service Date/Time: Monday, February 06, 2017 14:19 - CONCLUSION: Soft tissue swelling and soft tissue air most notably in the hindfoot adjacent to the heel. no definite acute bony findings Jeramie Neely MD Ankle X-Ray 02/06/17 0000 Signed Impressions: Service Date/Time: Monday, February 06, 2017 14:19 - CONCLUSION: 1. Soft tissue defect with gas diffusely throughout the subcutaneous soft tissues of the heel and plantar surface of the foot. This is concerning for gangrenous changes with a gas-forming organism. There is cortical irregularity of the calcaneus suggesting osteomyelitis. 2. Severe degenerative changes within the ankle. 3. Diffuse soft tissue swelling. Narciso Claros MD Objective Remarks GENERAL: This is a well-nourished, obese patient who appears unkept CARDIOVASCULAR: Regular rate and rhythm without murmurs, gallops, or rubs. Diminished pedal pulses. S1, S2 NO S3 OR S4 RESPIRATORY: Clear to auscultation. Breath sounds equal bilaterally. No wheezes , rales, or rhonchi. GASTROINTESTINAL: Abdomen soft, obese, non-tender, nondistended. No hepato- splenomegaly, or palpable masses. No guarding. MUSCULOSKELETAL: Extremities without clubbing, s/p left BKA dressing on c/d/i. NEUROLOGICAL: Awake and alert to self. Motor and sensory grossly within normal limits. Normal speech. PSYCHIATRIC: Poor insight and judgement. Procedures S/P AKA 02/11/[address] Sargent A/P Problem List: (1) Decubitus ulcer, stage 3 with infection ICD Code: L89.93 - Pressure ulcer of unspecified site, stage 3; L08.9 - Local infection of the skin and subcutaneous tissue, unspecified Status: Acute (2) Elevated troponin ICD Code: R74.8 - Abnormal levels of other serum enzymes Status: Acute (3) CHF (congestive heart failure) ICD Code: I50.9 - Heart failure, unspecified Status: Acute (4) Hypocalcemia ICD Code: E83.51 - Hypocalcemia Status: Acute (5) Hypokalemia ICD Code: E87.6 - Hypokalemia Status: Acute (6) Decubitus ulcer of ankle, unstageable ICD Code: L89.500 - Pressure ulcer of unspecified ankle, unstageable Status: Chronic Assessment and Plan 81 y/o female with a history of Dementia, CHF, DM, and Hyperlipidemia was brought into the ED by family with complaints of a open left heal wound. Decubitus ulcer, unchangeable on left ankle/ heel,, stage 2 sacrum S/P AKA 02/[address] Sargent for large left heel ulcer per [facility] surgery recommendations. Left ankle x ray reviewed and shows soft tissue defect with gas throughout, left foot x-ray show soft tissue swelling and soft tissue air C reactive protein 18.4 -MRI foot and ankle bilateral ordered r/o osteomyelitis -Consult Podiatry and wound care and vascular surgery, ff -Elevated heels, sofcare mattress ordered -On Vancomyacin and Zosyn IV -Pain management with IV morphine and PO Percocet CHF, chronic, diastolic Last Echo 05/2014 Showed Wall thickness increased with mild LVH, EF 55-60% BNP 603 Chest x ray reviewed and shows no fluid overload -Repeat Echo ordered -Monitor for fluid overload -Resume home lasix Elevated troponin, troponin 4.87, EKG reviewed and shows no ST elevation -Serial troponin and Ekgs -Consult cardiology Hypokalemia and hypocalcemia Potassium 2.8, protein corrected calcium 7.0 -Supplementation ordered, continue to trend and replace as needed -Resume home potassium supplement GLUCERNA TID- CONSULT NUTRITION Severe protein calorie malnutrition consult bus driver/monitor Self care deficit, total -Patient can not return to living condition, DCF has been notified -Palliative consult ordered -PT/OT.ST hodge ordered Cutaneous candidiasis: antifungals DVT prophylaxis: SCDs and Heparin Discharge Planning S/P amputation left AKA for large left heel wound 02/11/[address] Sargent [facility] surg DCF involvement, likely needs SNF at [place] Problem Qualifiers (1) CHF (congestive heart failure): Qualified Codes: I50.9 - Heart failure, unspecified (2) Decubitus ulcer of ankle, unstageable: Qualified Codes: L89.520 - Pressure ulcer of left ankle, unstageable Shawna Werner MD Feb 12, 2017 09:51
[2017-02-12] MEDS ORDERED: NYST15T TOPICAL (10:06)
[2017-02-12] MEDS ORDERED: OXYC1CAP PO (10:06)
[2017-02-12] MEDS ORDERED: METO25TA3 PO (10:06)
[2017-02-12] MEDS ORDERED: SENN1TAB PO (10:06)
[2017-02-12] MEDS: oxyCODONE/ACETAMINOPHEN 5 MG/325 MG TAB PO PRN (14:45)
[2017-02-12 17:08] LABS: HEMATOCRIT 30.4 % (35.0-46.0); MEAN CELL VOLUME 98.6 FL (80.0-100.0); MEAN CORPUSCULAR HEMOGLOBIN 30.4 PG (27.0-34.0); MEAN CORPUSCULAR HGB CONC 30.9 % (32.0-36.0); PLATELET COUNT 236 TH/MM3 (150-450); RED BLOOD COUNT 3.09 MIL/MM3 (4.00-5.30); RED CELL DISTRIBUTION WIDTH 16.4 % (11.6-17.2); WHITE BLOOD COUNT 17.9 TH/MM3 (4.0-11.0)
[2017-02-12 17:23] LABS: REVIEW FLAG FINAL
[2017-02-12 17:35] LABS: BICARBONATE 17.9 MEQ/L (21.0-32.0); POTASSIUM 3.7 MEQ/L (3.5-5.1)
[2017-02-13] VITALS (26 sets, daily range): BP systolic 109–166; BP diastolic 51–92; PULSE 62–87; RESP 14–18; TEMP 97.8–99.2; O2SAT 96–100
[2017-02-13] MEDS: PIPERACIL-TAZO 4.5 GM PREMIX 100 ML IV SCH (03:00)
[2017-02-13] MEDS: NYSTATIN 100,000 U/GM PWD 15 GM BTL TOPICAL SCH ×3 (05:34→21:09)
[2017-02-13] MEDS: HEPARIN SODIUM - SQ 10,000 UNITS/ML VIAL SQ SCH ×2 (05:34→16:02)
[2017-02-13] MEDS: NYSTATIN 100,000 UNIT/GM CREAM 15 GM TOPICAL SCH ×3 (05:34→21:09)
--- NOTE | 2017-02-13 07:56 | HHI.PR ---
Subjective Remarks In bed, WORKERS COMPENSATION LEGAL SECRETARY at bedside helping feeding her. Patient says she has good appetite and is eating failry well. Complaints of pain at the surgical site but doesn't appear in acute distress at this time. Patient denies any fever or chills. Denies chest pain or sob. No n/v/d/c. Objective Vitals Vital Signs Date Time Temp Pulse Resp B/P (MAP) Pulse Ox O2 Delivery O2 Flow Rate FiO2 02/13/17 06:00 62 02/13/17 05:00 68 02/13/17 04:00 76 02/13/17 03:52 97.8 70 18 109/51 (70) 100 02/13/17 03:00 72 02/13/17 02:00 68 02/13/17 01:00 70 02/13/17 00:00 64 02/12/17 23:33 97.9 66 18 131/57 (81) 100 02/12/17 23:00 72 02/12/17 22:00 62 02/12/17 21:15 21 02/12/17 21:00 84 02/12/17 20:00 66 02/12/17 19:33 97.9 70 18 141/62 (88) 100 02/12/17 19:00 72 02/12/17 17:00 68 02/12/17 16:00 64 02/12/17 16:00 18 02/12/17 15:00 98.7 75 18 141/64 (89) 100 02/12/17 15:00 63 02/12/17 14:00 78 02/12/17 13:00 80 02/12/17 12:00 72 02/12/17 11:00 73 02/12/17 10:00 74 02/12/17 09:00 72 02/12/17 08:00 70 I/O 02/12/17 02/12/17 02/12/17 02/13/17 02/13/17 02/13/17 07:00 15:00 23:00 07:00 15:00 23:00 Intake Total 300 ml 100 ml 400 ml 240 ml Output Total 1 ml Balance 300 ml 100 ml 399 ml 240 ml Intake Oral 200 ml 300 ml 240 ml IV Total 100 ml 100 ml 100 ml Stool Total 1 ml # Voids 1 2 1 # Bowel Movements 1 Result Diagram: 02/12/17 1645 02/12/17 1645 Imaging Last Impressions Foot MRI 02/10/17 1548 Signed Impressions: Service Date/Time: January 10:03 - CONCLUSION: Subcutaneous soft tissue swelling along the dorsum of the midfoot. No evidence of deep involvement, abnormal fluid collections, bone marrow edema or destructive bone changes. Gilberto Messer MD Ankle MRI 02/10/17 1548 Signed Impressions: Service Date/Time: January 10:03 - CONCLUSION: 1. Small osteochondral lesion along the lateral dome of the talus which has a chronic appearance. 2. Mild subcutaneous anterior soft tissue swelling. 3. No evidence of bone marrow edema or destructive bone changes. 4. No evidence of focal wound or abscess. Gilberto Messer MD Head CT 02/06/17 1249 Signed Impressions: Service Date/Time: Monday, February 06, 2017 14:45 - CONCLUSION: 1. Mild cortical atrophy and microvascular ischemic demyelinative change. 2. No acute intracranial abnormality is identified. Narciso Claros MD Chest X-Ray 02/06/17 1249 Signed Impressions: Service Date/Time: Monday, February 06, 2017 14:17 - CONCLUSION: 1. Degenerative changes in the shoulders bilaterally. 2. No acute cardiopulmonary findings. Narciso Claros MD Foot X-Ray 02/06/17 0000 Signed Impressions: Service Date/Time: Monday, February 06, 2017 14:19 - CONCLUSION: Soft tissue swelling and soft tissue air most notably in the hindfoot adjacent to the heel. no definite acute bony findings Jeramie Neely MD Ankle X-Ray 02/06/17 0000 Signed Impressions: Service Date/Time: Monday, February 06, 2017 14:19 - CONCLUSION: 1. Soft tissue defect with gas diffusely throughout the subcutaneous soft tissues of the heel and plantar surface of the foot. This is concerning for gangrenous changes with a gas-forming organism. There is cortical irregularity of the calcaneus suggesting osteomyelitis. 2. Severe degenerative changes within the ankle. 3. Diffuse soft tissue swelling. Narciso Claros MD Objective Remarks GENERAL: This is a well-nourished, obese patient in bed, appears in nad. CARDIOVASCULAR: Regular rate and rhythm without murmurs, gallops, or rubs. S1 , S2 NO S3 OR S4 RESPIRATORY: Clear to auscultation. Breath sounds equal bilaterally. No wheezes , rales, or rhonchi. GASTROINTESTINAL: Abdomen soft, obese, non-tender, nondistended. No hepato- splenomegaly, or palpable masses. No guarding. MUSCULOSKELETAL: Extremities without clubbing, S/p left AKA dressing on c/d/i. NEUROLOGICAL: Awake and alert to self. Motor and sensory grossly within normal limits. Normal speech. PSYCHIATRIC: Poor insight and judgement. Procedures S/P AKA 02/11/[address] Sargent A/P Problem List: (1) Decubitus ulcer, stage 3 with infection ICD Code: L89.93 - Pressure ulcer of unspecified site, stage 3; L08.9 - Local infection of the skin and subcutaneous tissue, unspecified Status: Acute (2) Elevated troponin ICD Code: R74.8 - Abnormal levels of other serum enzymes Status: Acute (3) CHF (congestive heart failure) ICD Code: I50.9 - Heart failure, unspecified Status: Acute (4) Hypocalcemia ICD Code: E83.51 - Hypocalcemia Status: Acute (5) Hypokalemia ICD Code: E87.6 - Hypokalemia Status: Acute (6) Decubitus ulcer of ankle, unstageable ICD Code: L89.500 - Pressure ulcer of unspecified ankle, unstageable Status: Chronic Assessment and Plan 81 y/o female with a history of Dementia, CHF, DM, and Hyperlipidemia was brought into the ED by family with complaints of a open left heal wound. Decubitus ulcer, unchangeable on left ankle/ heel, stage 2 sacrum S/P AKA 02/11/[address] Sargent for large left heel ulcer per vasc surgery recommendations. Left ankle x ray reviewed and shows soft tissue defect with gas throughout, left foot x-ray show soft tissue swelling and soft tissue air C reactive protein 18.4 -MRI foot and ankle bilateral r/o osteomyelitis -Consult Podiatry and wound care and vascular surgery, ff -Elevated heels, sofcare mattress ordered -On Vancomyacin and Zosyn IV . Blood cultures + corynebacterium 08/03 consult ID. Repeat BC NTD. -Pain management with IV morphine and PO Percocet CHF, chronic, combined diastolic and systolic EF 35-40% Last Echo 05/2014 Showed Wall thickness increased with mild LVH, EF 55-60% BNP 603 Chest x ray reviewed and shows no fluid overload -Repeat Echo EF 35-40% -Monitor for fluid overload -Resume home lasix Elevated troponin, troponin 4.87, EKG reviewed and shows no ST elevation -Serial troponin and Ekgs -Consult cardiology Hypokalemia and hypocalcemia Potassium 2.8, protein corrected calcium 7.0 -Supplementation ordered, continue to trend and replace as needed -Resume home potassium supplement GLUCERNA TID- CONSULT NUTRITION Severe protein calorie malnutrition consult urogynecology physician Self care deficit, total -Patient can not return to living condition, DCF has been notified -Palliative consult ordered -PT/OT.ST hodge ordered Cutaneous candidiasis: antifungals DVT prophylaxis: SCDs and Heparin Discharge Planning S/P amputation left AKA for large left heel wound 02/11/[address] Sargent vasc surg DCF involvement, likely needs SNF at DC, DC to snf when cleared by vas surg Problem Qualifiers (1) CHF (congestive heart failure): Qualified Codes: I50.9 - Heart failure, unspecified (2) Decubitus ulcer of ankle, unstageable: Qualified Codes: L89.520 - Pressure ulcer of left ankle, unstageable Shawna Werner MD Feb 13, 2017 07:56
[2017-02-13] MEDS: INSULIN ASPART SUPPLEMENTAL SCALE SQ SCH ×4 (08:00→21:08)
[2017-02-13] MEDS: DOCUSATE SODIUM 50 MG/SENNA 8.6 MG TAB PO SCH ×2 (08:04→21:05)
[2017-02-13] MEDS: ENALAPRIL MALEATE 10 MG TAB PO SCH (08:04)
[2017-02-13] MEDS: PRAVASTATIN SOD 40 MG TAB PO SCH (08:04)
[2017-02-13] MEDS: POTASSIUM CHLORIDE 25 MEQ EFFERVESCENT TAB PO SCH ×2 (08:04→21:06)
[2017-02-13] MEDS: FUROSEMIDE 20 MG TAB PO SCH (08:05)
[2017-02-13] MEDS: SODIUM CHLORIDE 0.9% FLUSH 10 ML FLUSH IV FLUSH SCH ×2 (08:05→21:06)
[2017-02-13] MEDS: PIPERACIL-TAZO 3.375 GM PREMIX 50 ML IV SCH ×3 (08:08→21:06)
[2017-02-13 09:58] LABS: AUTOMATED NEUTROPHIL # 10.5 TH/MM3 (1.8-7.7); BASOPHIL # 0.1 TH/MM3 (0-0.2); BASOPHIL % 0.9 % (0.0-2.0); EOSINOPHIL # 0.2 TH/MM3 (0-0.4); EOSINOPHIL % 1.1 % (0.0-4.0); HEMATOCRIT 31.7 % (35.0-46.0); LYMPH % 14.9 % (9.0-44.0); LYMPHOCYTE # 2.1 TH/MM3 (1.0-4.8); MEAN CELL VOLUME 96.4 FL (80.0-100.0); MEAN CORPUSCULAR HEMOGLOBIN 29.5 PG (27.0-34.0); MEAN CORPUSCULAR HGB CONC 30.6 % (32.0-36.0); MONO % 6.8 % (0.0-8.0); NEUT % 76.3 % (16.0-70.0); PLATELET COUNT 258 TH/MM3 (150-450); RED BLOOD COUNT 3.29 MIL/MM3 (4.00-5.30); RED CELL DISTRIBUTION WIDTH 16.2 % (11.6-17.2); WHITE BLOOD COUNT 13.7 TH/MM3 (4.0-11.0)
[2017-02-13 10:03] LABS: HEMO FLAGS AUTO DIFF
[2017-02-13 10:31] LABS: BICARBONATE 21.1 MEQ/L (21.0-32.0)
[2017-02-13 10:32] LABS: POTASSIUM 4.3 MEQ/L (3.5-5.1)
[2017-02-13 11:00] LABS: BANDS 5 % (0-6); CORRECTED NUCLEATED RBC 3 /100 WBC (0-0); NEUTROPHIL # MANUAL DIFF 11.1 TH/MM3 (1.8-7.7); PLATELET ESTIMATE SMEAR NORMAL (NORMAL); PLATELET MORPHOLOGY NORMAL (NORMAL); POLYS (SEG NEUTROPHILS) 76 % (16-70); SCAN/DIFF FINAL DIFF MANUAL; WBC DIFF SAMPLE 100
--- NOTE | 2017-02-13 12:46 | MB ---
cc: LEIGH CORTÉS MD, ALAN S. M.D. DATE OF CONSULTATION: 02/13/2017 REASON FOR CONSULTATION: Possible congestive heart failure and myocardial infarction. HISTORY OF PRESENT ILLNESS: I reviewed the chart. Unfortunately I cannot get any meaningful history from the patient as she is very lethargic and not very communicative, which is her baseline. She is a 81-year-old black woman who I am asked to see for possible congestive heart failure and myocardial infarction. The patient was admitted for a nonhealing left heel ulcer and on 02/11 underwent left [id number]-[id number] amputation. She has really not had any true cardiac complaints. Initial potassium had been 2.8 with evidence of severe malnutrition with an albumin of 1.3. Her troponin was elevated at 4.87 with a normal CPK of 87 and elevated BNP of 603. Her peak CPK was 5.65 with an elevated CPK of 412. Most recent blood work revealed a potassium of 4.3 with a of creatinine 1.03. Most recent hematocrit 31.7 with white count 13.7. PT/PTT normal. Chest x-ray done 02/06 showed degenerative changes but no acute cardiopulmonary disease. EKGs have shown probable sinus rhythm with ectopy with nonspecific ST-T wave changes. One EKG read on 02/06 was interpreted as atrial fibrillation, but I have reviewed it myself and there was too much artifact to tell. MEDICATIONS: List reviewed. ALLERGIES: None. REVIEW OF SYSTEMS: I cannot get a review of systems. SOCIAL HISTORY: I cannot get a social history. Apparently the patient does not smoke or drink. FAMILY HISTORY: I cannot get a family history. PHYSICAL EXAMINATION: GENERAL: On exam, she is very overweight but oxygen saturations are good. VITAL SIGNS: She is mildly hypertensive presently. Afebrile. The vital signs are stable. SKIN: There are no xanthelasma and oropharyngeal mucosa normal. CHEST: Clear. CARDIOVASCULAR: JVD normal. S1, S2. No definite murmurs or gallops. ABDOMEN: Obese but benign. EXTREMITIES: Left above-knee amputation with no cyanosis, clubbing or edema and stasis changes. PULSES: Carotids without bruits. Radials 1+. Femorals not felt. Echocardiogram showed an ejection fraction of 35% to 40% with anteroseptal / apical / anterior and anterolateral hypokinesis and mild MR. PROBLEMS: 1. Peripheral vascular disease. 2. Probable ischemic cardiomyopathy. 3. Hypertension / diabetes / hyperlipidemia. 4. Dementia. RECOMMENDATIONS: The patient is in extremely poor condition. She certainly does not appear to be symptomatic and at this point in time, certainly is not a candidate for any other cardiac workup. I would not change her medical regimen except for recommending aspirin and statins to the primary service. I will not follow but be available if needed. Her overall prognosis is extremely poor. MD JORDAN Melgoza/JCC /11:56 AM /12:36 PM
--- NOTE | 2017-02-13 13:00 | MB ---
cc: ALICIA ANTONIO MD DATE OF CONSULTATION: 02/13/2017 REQUESTING PHYSICIAN: Dr. Young. REASON FOR CONSULTATION: Bacteremia. HISTORY OF PRESENT ILLNESS: This is a 81 year-old black female who presented to the emergency department for evaluation of open wounds at the left lower extremity. The patient was only oriented to self on presentation. I am unable to get any meaningful information from her because she appears confused and unable to give much information. She tells me that she feels okay when asked how she is feeling. The patient was evaluated and she underwent above-knee amputation on 02/11. 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 Culture from the foot prior to the procedure on 02/06 had Enterococcus faecalis. Blood cultures on 02/06, and all four bottles came back with Corynebacterium not JK. Repeated blood cultures on 02/10 has no growth in three days. The patient had an elevated white blood cell count of 16.1 on admission and the white count remained elevated up until today when it was low at 13.7. The p 8 is afebrile. She is in no acute distress. Because of the positive blood cultures with Corynebacterium this request for infectious disease evaluation was made. PAST MEDICAL HISTORY 1. Dementia. 2. Diabetes mellitus. 3. Congestive heart failure. 4. Hyperlipidemia. ALLERGIES NO KNOWN DRUG ALLERGIES. MEDICATIONS 1. Piperacillin / tazobactam. 2. Vasotec 3. Lasix. 4. Pravachol. 5. Capri-Colace 6. Potassium bicarb/potassium chloride. 7. Sliding scale insulin. SOCIAL HISTORY No tobacco, alcohol or illicit drugs. FAMILY HISTORY Noncontributory. REVIEW OF SYSTEMS: Difficult to obtain because of the patient's mental status. PHYSICAL EXAMINATION This is a pleasant, awake, obese female in no acute distress. Vital signs: Include temperature of 98.4, BP 166/79, respirations 16, pulse 69. HEENT: Pupils reactive to light without icterus. Oropharynx no visible lesions. Moist mucosa. Neck: Supple without adenopathy. Lungs: Clear to auscultation. Heart: Regular S1-S2 without murmurs, rubs or gallops. Abdomen: Bowel sounds present, soft, nontender. Rectal: Not performed. Extremities: The left leg is post surgical amputation above the knee. There is a surgical dressing in place which was not unwrapped for infection at this time. I see no erythema. The other extremities have no clubbing, cyanosis or edema. Skin: No rash. Neuro: The patient is awake. No gross focal findings. LABORATORY DATA: WBCs 13.7, platelets 258, 76% neutrophils, hemoglobin 9.7, creatinine 1.03, estimated GFR 63, sodium 147. Urine culture from 02/06 had no growth. IMPRESSION Corynebacterium not JK positive blood cultures in a patient who had elevated white blood cell count and is now postop from AKA. Patient without clinical evidence suggesting septicemia. The positive blood culture is very likely contamination. Repeated blood cultures are negative at three days. I recommend not treating the Corynebacterium not JK blood culture. Since the patient has undergone [id number] amputation, she does not require additional antibiotics unless the wound shows signs of infection or she has difficulty with wound healing. I think at this point the Piperacillin/tazobactam can be discontinued and the wound can be followed for appropriate healing. I will sign off since the patient does not require additional ID follow up. Please see above recommendations. Thank you for the consultation. Alicia Antonio MD FD/CHERYLE /11:05 AM /12:29 PM
[2017-02-13] MEDS: VANCOMYCIN 1,500 MG/NS 500 ML IV SCH ×2 (16:00)
[2017-02-14] VITALS (31 sets, daily range): BP systolic 136–159; BP diastolic 60–99; PULSE 56–82; RESP 16–18; TEMP 97.9–99.1; O2SAT 98–100
[2017-02-14] MEDS: PIPERACIL-TAZO 3.375 GM PREMIX 50 ML IV SCH ×4 (03:20→21:49)
[2017-02-14] MEDS: HEPARIN SODIUM - SQ 10,000 UNITS/ML VIAL SQ SCH ×2 (04:09→17:37)
[2017-02-14] MEDS: NYSTATIN 100,000 U/GM PWD 15 GM BTL TOPICAL SCH ×3 (04:09→21:49)
[2017-02-14] MEDS: NYSTATIN 100,000 UNIT/GM CREAM 15 GM TOPICAL SCH ×3 (04:09→21:49)
[2017-02-14] MEDS ORDERED: NALOXONE HCL 0.4 MG/ML AMP ONE (07:06)
[2017-02-14] MEDS ORDERED: NITROGLYCERIN INJ 0 ML ONE (07:07)
[2017-02-14] MEDS ORDERED: NITROGLYCERIN-D5W 50 MG/250 ML 0 ML ONE (07:14)
[2017-02-14] MEDS: INSULIN ASPART SUPPLEMENTAL SCALE SQ SCH ×4 (08:00→21:00)
[2017-02-14] MEDS: DOCUSATE SODIUM 50 MG/SENNA 8.6 MG TAB PO SCH ×3 (09:00→21:00)
[2017-02-14] MEDS: ENALAPRIL MALEATE 10 MG TAB PO SCH (09:22)
[2017-02-14] MEDS: POTASSIUM CHLORIDE 25 MEQ EFFERVESCENT TAB PO SCH ×2 (09:22→21:48)
[2017-02-14] MEDS: FUROSEMIDE 20 MG TAB PO SCH (09:23)
[2017-02-14] MEDS: PRAVASTATIN SOD 40 MG TAB PO SCH (09:23)
--- NOTE | 2017-02-14 10:00 | PD.VS.PN ---
Subjective POD #: 3 Procedure(s): L AKA Subjective/Hospital Course Pt resting alert in NAD Appears comfortable Sung wrap to L AKA intact C/D Objective Vitals/I&O Date Time Temp Pulse Resp B/P (MAP) Pulse Ox O2 Delivery O2 Flow Rate FiO2 02/14/17 08:00 98.7 78 16 152/79 (103) 100 02/14/17 07:44 98.7 78 16 152/99 (116) 100 02/14/17 06:00 74 02/14/17 05:00 70 02/14/17 04:16 72 16 149/74 (99) 99 02/14/17 04:00 70 02/14/17 03:00 70 02/14/17 02:00 82 02/14/17 01:00 80 02/14/17 00:30 82 18 158/80 (106) 98 02/14/17 00:00 82 02/13/17 23:00 76 02/13/17 22:00 84 02/13/17 21:00 84 02/13/17 20:00 78 02/13/17 20:00 99.0 87 18 158/91 (113) 96 02/13/17 19:00 85 02/13/17 18:00 86 02/13/17 17:00 76 02/13/17 16:00 71 02/13/17 16:00 99.2 82 16 146/92 (110) 97 02/13/17 15:00 68 02/13/17 14:00 74 02/13/17 13:00 66 02/13/17 12:48 100 21 02/13/17 12:00 68 02/13/17 12:00 99.0 73 14 163/83 (109) 100 02/13/17 11:00 76 02/13/17 10:00 84 02/14/17 02/14/17 02/14/17 07:00 15:00 23:00 Intake Total 250 ml Balance 250 ml Exam: GENERAL: Alert and pleasantly confused SKIN: Warm and dry. L AKA site intact with staple closure/ NO R/D/S/O Laboratory Laboratory Tests Test 02/14/17 07:21 Random Vancomycin Level 22.7 Date/Time Source Procedure Growth Status 02/10/17 17:51 Blood Peripheral Aerobic Blood Culture - Preliminary NO GROWTH IN 3 DAYS Resulted 02/10/17 17:51 Blood Peripheral Anaerobic Blood Culture - Preliminary NO GROWTH IN 3 DAYS Resulted 02/06/17 15:15 Urine Catheterized Urine Urine Culture - Final NO GROWTH IN 48 HOURS. Complete 02/06/17 13:15 Wound Foot Gram Stain - Final Complete 02/06/17 13:15 Wound Culture - Final Enterococcus Faecalis Complete Assessment and Plan Assessment: (1) Dry gangrene (2) Decubitus ulcer of ankle, unstageable Status: Chronic Plan POD#3 s/p L AKA Plan Removed Provena wound vac PT/OOB May apply non adherent dressing to L AKA site if drainage present/Change daily May continue sung wrap to L AKA if swelling present Pt cleared from a vascular standpoint Arranged out patient f/u Ramona OLIVEIRA [facility] [phone] Discharge Planning Arranged out patient f/u Problem Qualifiers (1) Decubitus ulcer of ankle, unstageable: Qualified Codes: L89.520 - Pressure ulcer of left ankle, unstageable Ramona Reaves Feb 14, 2017 10:00
--- NOTE | 2017-02-14 11:11 | HHI.PR ---
Subjective Remarks Follow-up of left AKA 02/14/17-patient seen and examined, currently afebrile. Patient was seen by infectious disease specialist who stated likely contaminant and no case of septicemia. Alert to self and place but not date and time. Currently afebrile. Objective Vitals Vital Signs Date Time Temp Pulse Resp B/P (MAP) Pulse Ox O2 Delivery O2 Flow Rate FiO2 02/14/17 08:00 98.7 78 16 152/79 (103) 100 02/14/17 07:44 98.7 78 16 152/99 (116) 100 02/14/17 06:00 74 02/14/17 05:00 70 02/14/17 04:16 72 16 149/74 (99) 99 02/14/17 04:00 70 02/14/17 03:00 70 02/14/17 02:00 82 02/14/17 01:00 80 02/14/17 00:30 82 18 158/80 (106) 98 02/14/17 00:00 82 02/13/17 23:00 76 02/13/17 22:00 84 02/13/17 21:00 84 02/13/17 20:00 78 02/13/17 20:00 99.0 87 18 158/91 (113) 96 02/13/17 19:00 85 02/13/17 18:00 86 02/13/17 17:00 76 02/13/17 16:00 71 02/13/17 16:00 99.2 82 16 146/92 (110) 97 02/13/17 15:00 68 02/13/17 14:00 74 02/13/17 13:00 66 02/13/17 12:48 100 21 02/13/17 12:00 68 02/13/17 12:00 99.0 73 14 163/83 (109) 100 02/13/17 11:00 76 I/O 02/13/17 02/13/17 02/13/17 02/14/17 02/14/17 02/14/17 06:59 14:59 22:59 06:59 14:59 22:59 Intake Total 240 ml 50 ml 1170 ml 250 ml Balance 240 ml 50 ml 1170 ml 250 ml Intake Oral 240 ml 420 ml 200 ml IV Total 50 ml 750 ml 50 ml # Voids 1 4 1 # Bowel Movements 2 1 Result Diagram: 02/13/17 0934 02/13/17 0934 Imaging Last Impressions Foot MRI 02/10/17 1548 Signed Impressions: Service Date/Time: January 10:03 - CONCLUSION: Subcutaneous soft tissue swelling along the dorsum of the midfoot. No evidence of deep involvement, abnormal fluid collections, bone marrow edema or destructive bone changes. Gilberto Messer MD Ankle MRI 02/10/17 1548 Signed Impressions: Service Date/Time: January 10:03 - CONCLUSION: 1. Small osteochondral lesion along the lateral dome of the talus which has a chronic appearance. 2. Mild subcutaneous anterior soft tissue swelling. 3. No evidence of bone marrow edema or destructive bone changes. 4. No evidence of focal wound or abscess. Gilberto Messer MD Head CT 02/06/17 1249 Signed Impressions: Service Date/Time: Monday, February 06, 2017 14:45 - CONCLUSION: 1. Mild cortical atrophy and microvascular ischemic demyelinative change. 2. No acute intracranial abnormality is identified. Narcios Claros MD Chest X-Ray 02/06/17 1249 Signed Impressions: Service Date/Time: Monday, February 06, 2017 14:17 - CONCLUSION: 1. Degenerative changes in the shoulders bilaterally. 2. No acute cardiopulmonary findings. Narciso Claros MD Foot X-Ray 02/06/17 0000 Signed Impressions: Service Date/Time: Monday, February 06, 2017 14:19 - CONCLUSION: Soft tissue swelling and soft tissue air most notably in the hindfoot adjacent to the heel. no definite acute bony findings Jeramie Neely MD Ankle X-Ray 02/06/17 0000 Signed Impressions: Service Date/Time: Monday, February 06, 2017 14:19 - CONCLUSION: 1. Soft tissue defect with gas diffusely throughout the subcutaneous soft tissues of the heel and plantar surface of the foot. This is concerning for gangrenous changes with a gas-forming organism. There is cortical irregularity of the calcaneus suggesting osteomyelitis. 2. Severe degenerative changes within the ankle. 3. Diffuse soft tissue swelling. Narciso Claros MD Objective Remarks GENERAL: NAD SKIN: Warm and dry. HEAD: Normocephalic. EYES: No scleral icterus. No injection or drainage. NECK: Supple, trachea midline. No JVD or lymphadenopathy. CARDIOVASCULAR: Regular rate and rhythm without murmurs, gallops, or rubs. RESPIRATORY: Breath sounds equal bilaterally. No accessory muscle use. GASTROINTESTINAL: Abdomen soft, non-tender, nondistended. MUSCULOSKELETAL: No cyanosis, or edema. s/p Left AKA with wound vac in place BACK: Nontender without obvious deformity. No CVA tenderness. Procedures S/P AKA 02/11/[address] Sargent A/P Problem List: (1) Decubitus ulcer, stage 3 with infection ICD Code: L89.93 - Pressure ulcer of unspecified site, stage 3; L08.9 - Local infection of the skin and subcutaneous tissue, unspecified Status: Acute (2) Elevated troponin ICD Code: R74.8 - Abnormal levels of other serum enzymes Status: Acute (3) CHF (congestive heart failure) ICD Code: I50.9 - Heart failure, unspecified Status: Acute (4) Hypocalcemia ICD Code: E83.51 - Hypocalcemia Status: Acute (5) Hypokalemia ICD Code: E87.6 - Hypokalemia Status: Acute (6) Decubitus ulcer of ankle, unstageable ICD Code: L89.500 - Pressure ulcer of unspecified ankle, unstageable Status: Chronic Assessment and Plan 81-year-old female with Decubitus ulcer, unchangeable on left ankle/ heel, stage 2 sacrum S/P AKA 02/11/[address] Sargent -MRI foot and ankle bilateral r/o osteomyelitis -Appreciate input from vascular surgery, and plan remove wound VAC today -Wound care per protocol -May apply non adherent dressing to L AKA site if drainage present/Change daily -May continue rodney wrap to L AKA if swelling present -Pain management with IV morphine and PO Percocet Questionable septicemia Appreciate input from infectious disease Culture report likely contaminant Discontinue all antibiotics CHF, chronic, combined diastolic and systolic EF 35-40% Last Echo 05/2014 Showed Wall thickness increased with mild LVH, EF 55-60% BNP 603 Chest x ray reviewed and shows no fluid overload -Repeat Echo EF 35-40% -Monitor for fluid overload -Continue home lasix Elevated troponin, troponin 4.87, EKG reviewed and shows no ST elevation -Serial troponin and Ekgs -Appreciate input from cardiology Hypokalemia and hypocalcemia Potassium 2.8, protein corrected calcium 7.0 -Replace electrolytes per protocol Severe protein calorie malnutrition consult glass calibrator Failure to thrive -Patient can not return to living condition, DCF has been notified -Palliative consult ordered -PT/OT.ST eval ordered Cutaneous candidiasis: antifungals DVT prophylaxis: SCDs and Heparin Problem Qualifiers (1) CHF (congestive heart failure): Qualified Codes: I50.9 - Heart failure, unspecified (2) Decubitus ulcer of ankle, unstageable: Qualified Codes: L89.520 - Pressure ulcer of left ankle, unstageable Avery Villafana MD Feb 14, 2017 11:11
[2017-02-14] MEDS ORDERED: ACET1TAB86 PO (11:15)
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
[2017-02-14] MEDS ORDERED: ASPI81TA11 PO (11:23)
[2017-02-14] MEDS: SODIUM CHLORIDE 0.9% FLUSH 10 ML FLUSH IV FLUSH SCH ×2 (11:53→21:48)
[2017-02-14] MEDS: oxyCODONE/ACETAMINOPHEN 5 MG/325 MG TAB PO PRN ×2 (12:30→13:30)
[2017-02-14] MEDS: VANCOMYCIN 1,500 MG/NS 500 ML IV SCH ×2 (16:45)
[2017-02-15] VITALS (21 sets, daily range): BP systolic 140–149; BP diastolic 67–78; PULSE 53–84; RESP 14–18; TEMP 97.7–98.3; O2SAT 99
[2017-02-15] MEDS: PIPERACIL-TAZO 3.375 GM PREMIX 50 ML IV SCH ×3 (03:19→14:37)
[2017-02-15] MEDS: NYSTATIN 100,000 UNIT/GM CREAM 15 GM TOPICAL SCH ×2 (04:59→14:37)
[2017-02-15] MEDS: HEPARIN SODIUM - SQ 10,000 UNITS/ML VIAL SQ SCH (04:59)
[2017-02-15] MEDS: NYSTATIN 100,000 U/GM PWD 15 GM BTL TOPICAL SCH ×2 (04:59→14:37)
[2017-02-15] MEDS: INSULIN ASPART SUPPLEMENTAL SCALE SQ SCH ×2 (08:05→12:00)
[2017-02-15] MEDS: DOCUSATE SODIUM 50 MG/SENNA 8.6 MG TAB PO SCH (09:00)
[2017-02-15] MEDS: PRAVASTATIN SOD 40 MG TAB PO SCH (09:26)
[2017-02-15] MEDS: POTASSIUM CHLORIDE 25 MEQ EFFERVESCENT TAB PO SCH (09:26)
--- NOTE | 2017-02-15 09:26 | HHI.PR ---
Subjective Remarks Follow-up of left AKPam 02/14/17-patient seen and examined, currently afebrile. Patient was seen by infectious disease specialist who stated likely contaminant and no case of septicemia. Alert to self and place but not date and time. Currently afebrile. 02/15/17-patient seen and examined, blood glucose level in 80s however patient asymptomatic. Currently afebrile and no acute event overnight Objective Vitals Vital Signs Date Time Temp Pulse Resp B/P (MAP) Pulse Ox O2 Delivery O2 Flow Rate FiO2 02/15/17 09:03 84 02/15/17 08:04 67 02/15/17 07:42 98.2 70 16 145/78 (100) 99 02/15/17 07:42 53 02/15/17 06:00 65 02/15/17 05:00 66 02/15/17 04:00 62 02/15/17 03:00 97.9 65 14 149/67 (94) 99 02/15/17 03:00 64 02/15/17 02:00 70 02/15/17 01:00 62 02/15/17 00:00 64 02/14/17 23:30 97.9 66 16 156/67 (96) 100 02/14/17 23:00 56 02/14/17 22:00 62 02/14/17 21:00 62 02/14/17 20:30 97.9 66 16 159/72 (101) 99 02/14/17 20:00 60 02/14/17 19:00 66 02/14/17 18:00 64 02/14/17 17:00 60 02/14/17 16:01 99.0 62 16 136/60 (85) 100 02/14/17 16:00 59 02/14/17 15:00 62 02/14/17 14:00 66 02/14/17 13:00 74 02/14/17 12:00 68 02/14/17 12:00 99 02/14/17 11:30 99.1 78 16 141/69 (93) 100 02/14/17 11:00 60 02/14/17 10:00 76 I/O 02/14/17 02/14/17 02/14/17 02/15/17 02/15/17 02/15/17 06:59 14:59 22:59 06:59 14:59 22:59 Intake Total 250 ml 1045 ml 290 ml Balance 250 ml 1045 ml 290 ml Intake Oral 200 ml 480 ml 240 ml IV Total 50 ml 565 ml 50 ml # Voids 1 2 2 # Bowel Movements 1 2 1 Result Diagram: 02/13/17 0934 02/13/17 0934 Imaging Last Impressions Foot MRI 02/10/17 1548 Signed Impressions: Service Date/Time: January 10:03 - CONCLUSION: Subcutaneous soft tissue swelling along the dorsum of the midfoot. No evidence of deep involvement, abnormal fluid collections, bone marrow edema or destructive bone changes. Gilberto Messer MD Ankle MRI 02/10/17 1548 Signed Impressions: Service Date/Time: January 10:03 - CONCLUSION: 1. Small osteochondral lesion along the lateral dome of the talus which has a chronic appearance. 2. Mild subcutaneous anterior soft tissue swelling. 3. No evidence of bone marrow edema or destructive bone changes. 4. No evidence of focal wound or abscess. Gilberto Messer MD Head CT 02/06/17 124 Signed Impressions: Service Date/Time: Monday, February 06, 2017 14:45 - CONCLUSION: 1. Mild cortical atrophy and microvascular ischemic demyelinative change. 2. No acute intracranial abnormality is identified. Narciso Claros MD Chest X-Ray 02/06/171248 Signed Impressions: Service Date/Time: Monday, February 06, 2017 14:17 - CONCLUSION: 1. Degenerative changes in the shoulders bilaterally. 2. No acute cardiopulmonary findings. Narciso Claros MD Foot X-Ray 02/06/17 0000 Signed Impressions: Service Date/Time: Monday, February 06, 2017 14:19 - CONCLUSION: Soft tissue swelling and soft tissue air most notably in the hindfoot adjacent to the heel. no definite acute bony findings Jeramie Neely MD Ankle X-Ray 02/06/17 0000 Signed Impressions: Service Date/Time: Monday, February 06, 2017 14:19 - CONCLUSION: 1. Soft tissue defect with gas diffusely throughout the subcutaneous soft tissues of the heel and plantar surface of the foot. This is concerning for gangrenous changes with a gas-forming organism. There is cortical irregularity of the calcaneus suggesting osteomyelitis. 2. Severe degenerative changes within the ankle. 3. Diffuse soft tissue swelling. Narciso Claros MD Objective Remarks GENERAL: NAD SKIN: Warm and dry. HEAD: Normocephalic. EYES: No scleral icterus. No injection or drainage. NECK: Supple, trachea midline. No JVD or lymphadenopathy. CARDIOVASCULAR: Regular rate and rhythm without murmurs, gallops, or rubs. RESPIRATORY: Breath sounds equal bilaterally. No accessory muscle use. GASTROINTESTINAL: Abdomen soft, non-tender, nondistended. MUSCULOSKELETAL: No cyanosis, or edema. s/p Left AKA BACK: Nontender without obvious deformity. No CVA tenderness. Procedures S/P AKA 02/11/[address] Sargent A/P Problem List: (1) Decubitus ulcer, stage 3 with infection ICD Code: L89.93 - Pressure ulcer of unspecified site, stage 3; L08.9 - Local infection of the skin and subcutaneous tissue, unspecified Status: Acute (2) Elevated troponin ICD Code: R74.8 - Abnormal levels of other serum enzymes Status: Acute (3) CHF (congestive heart failure) ICD Code: I50.9 - Heart failure, unspecified Status: Acute (4) Hypocalcemia ICD Code: E83.51 - Hypocalcemia Status: Acute (5) Hypokalemia ICD Code: E87.6 - Hypokalemia Status: Acute (6) Decubitus ulcer of ankle, unstageable ICD Code: L89.500 - Pressure ulcer of unspecified ankle, unstageable Status: Chronic Assessment and Plan 81-year-old female with Decubitus ulcer, unchangeable on left ankle/ heel, stage 2 sacrum S/P AKA 02/11/[address] Sargent -MRI foot and ankle bilateral r/o osteomyelitis -Appreciate input from vascular surgery, and wound VAC removed 02/14/17 -Wound care per protocol -May apply non adherent dressing to L AKA site if drainage present/Change daily -May continue rodney wrap to L AKA if swelling present -Pain management with IV morphine and PO Percocet Questionable septicemia Appreciate input from infectious disease Culture report likely contaminant Discontinue all antibiotics CHF, chronic, combined diastolic and systolic EF 35-40% Last Echo 05/2014 Showed Wall thickness increased with mild LVH, EF 55-60% BNP 603 Chest x ray reviewed and shows no fluid overload -Repeat Echo EF 35-40% -Monitor for fluid overload -Continue home lasix Elevated troponin, troponin 4.87, EKG reviewed and shows no ST elevation -Serial troponin and Ekgs -Appreciate input from cardiology Hypokalemia and hypocalcemia Resolved Severe protein calorie malnutrition consult soccer commentator Failure to thrive -Patient can not return to living condition, DCF has been notified -Palliative consult ordered -PT/OT.ST eval ordered Cutaneous candidiasis: antifungals DVT prophylaxis: SCDs and Heparin Problem Qualifiers (1) CHF (congestive heart failure): Qualified Codes: I50.9 - Heart failure, unspecified (2) Decubitus ulcer of ankle, unstageable: Qualified Codes: L89.520 - Pressure ulcer of left ankle, unstageable Avery Villafana MD Feb 15, 2017 09:26
[2017-02-15] MEDS: FUROSEMIDE 20 MG TAB PO SCH (09:27)
[2017-02-15] MEDS: ENALAPRIL MALEATE 10 MG TAB PO SCH (09:27)
[2017-02-15] MEDS: SODIUM CHLORIDE 0.9% FLUSH 10 ML FLUSH IV FLUSH SCH (09:28)
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
== END 2017-02-15 16:43 | DRG 239 ==
LOC: NEPE 12:10 → NEDA 15:42 → HCIS 19:03 → HCIN 02-11 07:49
PROVIDERS: ADMIT Hospitalist; ATTEND Hospitalist
PROC: 0Y6D0Z3 Detachment at Left Upper Leg, Low, Open Approach (ICD-10-PCS; principal; 2017-02-11 07:53)
DX: I96 Gangrene, not elsewhere classified (principal); L89.623 Pressure ulcer of left heel, stage 3; E43 Unspecified severe protein-calorie malnutrition; L89.153 Pressure ulcer of sacral region, stage 3; I11.0 Hypertensive heart disease with heart failure; M86.9 Osteomyelitis, unspecified; I50.42 Chronic combined systolic (congestive) and diastolic (congestive) heart failure; E83.51 Hypocalcemia; L89.613 Pressure ulcer of right heel, stage 3; L03.116 Cellulitis of left lower limb; E11.8 Type 2 diabetes mellitus with unspecified complications; L89.520 Pressure ulcer of left ankle, unstageable; F03.90 Unspecified dementia, unspecified severity, without behavioral disturbance, psychotic disturbance, mood disturbance, and anxiety; R74.8 Abnormal levels of other serum enzymes; E87.6 Hypokalemia; E66.9 Obesity, unspecified; R62.7 Adult failure to thrive; E78.5 Hyperlipidemia, unspecified; I34.0 Nonrheumatic mitral (valve) insufficiency; Z74.01 Bed confinement status; Z51.5 Encounter for palliative care; I25.5 Ischemic cardiomyopathy; B37.2 Candidiasis of skin and nail
CPT/HCPCS: 70450; 71010; 73610; 73630; 73720; 73723; 76937; 80048; 80053; 80061; 80202; 81001; 82550; 82552; 82948; 83036; 83605; 83735; 83880; 84100; 84439; 84443; 84484; 85007; 85025; 85027; 85610; 85730; 86140; 86403; 86850; 86900; 86901; 87040; 87070; 87077; 87086; 87186; 87205; 87493; 88307; 88311; 93005; 93306; 96361; 96365; 96375; A9579; J0171; J0330; J0461; J0610; J1644; J1815; J2270; J2310; J2370; J2543; J2710; J3010; J3370; J3475; J3480; J7030; J7040; J7050